=== PATIENT | male | born 1930 | race Caucasian/White ===

== ENCOUNTER 2017-12-13 15:16 | Inpatient (IN) | payer OTHER, MEDICAID ==
[~2017-12-13] VITALS: Ht 175.3 cm; Wt 45.8 kg
[2017-12-13 15:16] VITALS: BP_SYST 115
[~2017-12-13 15:16] MED LIST: CARV6.2554 PO; ERGO500043 PO; LEVE500T53 PO; SENN-153 PO; TAMS-11 PO
--- NOTE | 2017-12-13 15:16 | NUR ---
BROUGHT IN BY [facility], PLACED IN BED #4 AND TRIAGED. REPORT GIVEN TO SAMANTHA
--- NOTE | 2017-12-13 15:30 | NUR ---
Pt brought by ACLS, A&Ox2, pt presents to ER with generalized weakness and buttocks pain 8/10 , cap refill <3, skin dry, radial pulses equal and strong, pt looks malnourished.
--- NOTE | 2017-12-13 15:30 | NUR ---
Dr Andrew at bedside examining patient
[2017-12-13] MEDS ORDERED: NS 500 ML IV ONE ×2 (15:45→21:45)
--- NOTE | 2017-12-13 15:56 | NUR ---
Per pt at pt daughter, pt is FULL CODE. Status form signed by ER MD and 2 RN's placed in chart
[2017-12-13 16:29] LABS: HEMATOCRIT 34.7 % (36-54); HEMOGLOBIN 11.4 g/dL (14.0-18.0); MEAN CORPUSCULAR HEMOGLOBIN 30 pg (27-31); MEAN CORPUSCULAR HGB CONC 33 % (32-36); MEAN CORPUSCULAR VOLUME 91 fL (79.0-98.0); PLATELET COUNT (AUTO) 645 K/uL (130-430); RED BLOOD CELL COUNT(AUTO) 3.82 MIL/uL (4.2-6.2); RED CELL DISTRIBUTION WIDTH 14.2 % (9.0-15.0)
[2017-12-13 16:30] LABS: INR 1.1 (0.80-1.20)
[2017-12-13 16:31] LABS: WHITE BLOOD COUNT (AUTO) 32.9 K/uL (4.8-10.8)
--- NOTE | 2017-12-13 16:32 | NUR ---
patient moved to bed 2
[2017-12-13] MEDS ORDERED: MIRT15TA7 PO (16:40)
[2017-12-13] MEDS ORDERED: LEVO50TA77 PO (16:40)
[2017-12-13] MEDS ORDERED: ACET-1010 PO (16:40)
[2017-12-13 16:42] LABS: ANION GAP 8 (5-15); CALCIUM 10.6 mg/dL (8.4-11.0); CHLORIDE 98 mmol/L (98-107); CREATININE 1.61 mg/dL (0.55-1.30); GLUCOSE 248 mg/dL (70-99); POTASSIUM 5.4 mmol/L (3.5-5.1); SODIUM SERUM 132 mmol/L (136-145); UREA NITROGEN, BLOOD 48 mg/dL (8-21)
--- NOTE | 2017-12-13 16:42 | NUR ---
Medication reconciliation completed with information provided by RX bottles at bedside. Any prior medication reconciliation on file was reviewed and corrected.
[2017-12-13] MEDS ORDERED: LEVOFLOXACIN 500 MG/D5W 100 ML IV ONE (16:45)
[2017-12-13 16:47] LABS: BAND % (MANUAL) 34 % (0-6); BASOPHILS % (MANUAL) 0 % (0-2); EOSINOPHILS % (MANUAL) 0 % (0-7); LYMPHOCYTES % (MANUAL) 4 % (20-46); MONOCYTES % (MANUAL) 2 % (0-11)
[2017-12-13 16:53] LABS: ALANINE AMINOTRANSFERASE 14 U/L (12-78); ALBUMIN 2.1 g/dL (3.4-4.8); ASPARTATE AMINOTRANSFERASE 13 U/L (10-37); FREE T4 (FREE THYROXINE) 1.1 ng/dL (0.6-1.6); TOTAL BILIRUBIN 0.4 mg/dL (0.0-1.0)
--- NOTE | 2017-12-13 17:00 | NUR ---
Pt unable to urinate, pt refused urinary catheter, aware
[2017-12-13] MEDS ORDERED: SODIUM POLYSTYRENE SULFONATE 15 GM/60 ML UDBTL PO ONE (17:30)
[2017-12-13] MEDS ORDERED: SODIUM BICARBONATE 8.4% JECT 50 MEQ/50 ML SYRINGE IVP ONE (17:30)
[2017-12-13] MEDS ORDERED: CALCIUM CHLORIDE 1 GM/10ML VIAL (13.6 mEq Ca++/VIAL) IVP ONE (17:30)
[2017-12-13] MEDS ORDERED: DEXTROSE 50% JECT 50 ML DISP.SYRIN IVP ONE (17:30)
[2017-12-13] MEDS ORDERED: INSULIN REGULAR, HUMAN 10 UNITS/0.1 ML INJ IVP ONE (17:30)
--- NOTE | 2017-12-13 17:30 | NUR ---
Pt on stable condition, resting at this time, VSS,family at bedside
[2017-12-13] MEDS ORDERED: CALCIUM CHLORIDE 1 GM/10 ML DISP.SYRIN (14 mEq Ca++/SYR) ONE (18:38)
--- NOTE | 2017-12-13 18:45 | NUR ---
Pt medicated as ordered, well tolerated, family at bedside.
--- NOTE | 2017-12-13 19:15 | NUR ---
Pt alert and oriented. Family at bedside. No signs of SOB or acute distress noted. Will continue to monitor.
[2017-12-13] MEDS ORDERED: ALBUTEROL SULFATE 0.083% 2.5 MG/3 ML VIAL.NEB INH PRN (20:00)
[2017-12-13] MEDS ORDERED: NACL 0.9% 1,000 ML IV ONE (20:15)
[2017-12-13] MEDS ORDERED: PIPERACILLIN/TAZO 3.375 GM in NS 50 ML IV ONE (20:15)
--- NOTE | 2017-12-13 21:15 | NUR ---
Pt resting in bed, awake and alert. Family at bedside. Family and pt aware of transer to ICU. No signs of SOB or acute distress noted. Will continue to monitor.
[2017-12-13 23:00] VITALS: BP_SYST 89
--- NOTE | 2017-12-13 23:00 | NUR ---
[facility] report given by LEAD MEDICAL TECHNOLOGIST. Pt is filipino speaking with no uzbek. Family was able to translate for the Pt. AAOX3 with BP at 95/60. Pt was diagnosed with failure to thrive and sepsis. On regular diet. Lactic acid at 3.3 and WBC of 32.9. Pt on 2L nasal cannula saturating well with 100%. Pt is incontinent. Safety precaution identified, HOB elevated and side rails are up. Call light within reach. Will continue top monitor Pt.
--- NOTE | 2017-12-13 23:00 | NUR ---
Transfer to ICU 4 via ACLS protocol. Licensed nurse present. IV present no signs or symptoms of infiltration. Report given to PUPPET ENGINEER. Pt in stable condition. Belongings sent with patient.
[2017-12-13 23:25] VITALS: BP_SYST 93
[2017-12-13 23:40] VITALS: BP_SYST 93
[2017-12-14] VITALS (24 sets, daily range): BP systolic 85–132
[2017-12-14] MEDS ORDERED: PIPERACILLIN/TAZOBACTAM 3.375 GM/VIAL (ZOSYN) IV ONE ×2 (00:34→05:36)
--- NOTE | 2017-12-14 02:45 | NUR ---
MD Sheth is being hypotensive with BP systolic at 80, paged and spoke with MD Davila, orders received and will carry out orders.
[2017-12-14] MEDS ORDERED: NOREPINEPHRINE 4 MG/4 ML VIAL IV ONE (02:53)
[2017-12-14] MEDS ORDERED: NACL 0.9% 1,000 ML IV ONE (02:55)
[2017-12-14] MEDS ORDERED: VANCOMYCIN HCL 750 MG in NS 250 ML IV ONE (03:00)
[2017-12-14] MEDS: NOREPINEPHRINE BITARTRATE 4 MG in D5W 246 ML IV PRN ×3 (03:00→22:59)
--- NOTE | 2017-12-14 03:00 | NUR ---
RN NOTES Levophed started at 2mcg/min and will continue to monitor Pt.
--- NOTE | 2017-12-14 03:20 | NUR ---
RN NOTES BP systolic at 120's, levophed running at 6mcg/min. Will continue to monitor Pt.
[2017-12-14] MEDS ORDERED: VANCOMYCIN HCL 1000 MG/VIAL IV ONE (03:45)
[2017-12-14] MEDS: PIPERACILLIN/TAZO 3.375/DEX-IS 50 ML IV SCH ×3 (06:24→17:25)
--- NOTE | 2017-12-14 06:30 | NUR ---
BLOOD GLUCOSE Blood sugar 36 will follow hypoglycemia protocol. Addendum: 12/14/17 at 0729 by Jorge Boland RN BLOOD GLUCOSE Blood sugar 36 will follow hypoglycemia protocol and will recheck blood glucose after 15 min.
[2017-12-14] MEDS ORDERED: DEXTROSE 50% JECT 50 ML DISP.SYRIN ONE (06:35)
--- NOTE | 2017-12-14 06:45 | NUR ---
BLOOD GLUCOSE Blood glucose 163 after giving d50.
--- NOTE | 2017-12-14 06:58 | NUR ---
CLOSING NOTES Pt in bed VSS, No acute distress at this time. Will give report to oncoming RN.
[2017-12-14 07:05] LABS: HEMOGLOBIN 9.5 g/dL (14.0-18.0); MEAN CORPUSCULAR HEMOGLOBIN 30 pg (27-31); MEAN CORPUSCULAR HGB CONC 33 % (32-36); MEAN CORPUSCULAR VOLUME 92 fL (79.0-98.0); PLATELET COUNT (AUTO) 533 K/uL (130-430); RED BLOOD CELL COUNT(AUTO) 3.17 MIL/uL (4.2-6.2); RED CELL DISTRIBUTION WIDTH 14.1 % (9.0-15.0)
[2017-12-14] MEDS ORDERED: DEXTROSE 50%-WATER 50 ML DISP.SYRIN IVP PRN ×2 (07:30)
[2017-12-14] MEDS ORDERED: GLUCOSE 15 GM GEL (in 37.5 GM TUBE) PO PRN ×2 (07:30)
[2017-12-14 07:49] LABS: WHITE BLOOD COUNT (AUTO) 36.7 K/uL (4.8-10.8)
--- NOTE | 2017-12-14 08:00 | NUR ---
AM ASSESSMENT. PT AWAKE, REPOSITIONED IN BED, INCONTINENT OF BOWEL, LOOSE [id number] STOOL, HYGIENE PROVIDED WITH WET WIPES, BUTTOCKS BONY, SMALL SKIN TEAR, OPENED SORE BY RECTAL AREA, Z-GUARD LOTION APPLIED, LOOSE STOOL KEEP COMING OUT THOUGH EVEN AFTER BEING CLEANED, CONTINUE TO MONITOR.
[2017-12-14 08:07] LABS: ANION GAP 11 (5-15); CALCIUM 8.6 mg/dL (8.4-11.0); CHLORIDE 109 mmol/L (98-107); POTASSIUM 3.5 mmol/L (3.5-5.1); SODIUM SERUM 141 mmol/L (136-145); UREA NITROGEN, BLOOD 45 mg/dL (8-21)
--- NOTE | 2017-12-14 08:08 | NUR ---
Nutrition Update Lee Scale 13 noted. Pt admitted for failure to thrive Diet: regular diet BMI: 15.2 kg/m2 RD to follow per nutrition care standards.
[2017-12-14 08:16] LABS: ALANINE AMINOTRANSFERASE 12 U/L (12-78); ALBUMIN 1.5 g/dL (3.4-4.8); ASPARTATE AMINOTRANSFERASE 16 U/L (10-37); TOTAL BILIRUBIN 0.3 mg/dL (0.0-1.0)
[2017-12-14 08:22] LABS: GLUCOSE 46 mg/dL (70-99)
--- NOTE | 2017-12-14 09:10 | NUR ---
DR. MELÉNDEZ, DR. MELÉNDEZ NOTIFIED OF WBC 36.7, NEW ORDERS TO CONSULT DR. ABARMS, AND DR. LECHUGA.
[2017-12-14 09:12] LABS: BAND % (MANUAL) 39 % (0-6); LYMPHOCYTES % (MANUAL) 5 % (20-46)
[2017-12-14 09:13] LABS: BASOPHILS % (MANUAL) 0 % (0-2); EOSINOPHILS % (MANUAL) 0 % (0-7); MONOCYTES % (MANUAL) 5 % (0-11); MYELOCYTES % 2 % (0-0)
[2017-12-14] MEDS: levETIRAcetam 500 MG TABLET PO SCH ×2 (09:32→20:55)
[2017-12-14] MEDS ORDERED: NACL 0.9% 1,000 ML IV SCH (11:00)
--- NOTE | 2017-12-14 12:45 | NUR ---
PERSISTANT TACHYCARDIA DR. MELÉNDEZ WITH [facility] CONTACTED REGARDING ELEVATED HEART RATE IN THE 140'S. ORDER GIVEN FOR VASOPRESSIN DRIP. 1250 UNABLE TO ENTER ORDER FOR VASOPRESSIN DRIP, PHARMACY WAS CONTACTED AND THE MEDICATION IS NO LONGER IN THE HOSP. FORMULARY. 1255 DR. MELÉNDEZ WAS PAGED AGAIN. 1251 DR. MELÉNDEZ RETURNED CALL AND PLACED AN ORDER FOR NEOSYNEPHRINE DRIP.
[2017-12-14] MEDS ORDERED: VASOPRESSIN 200 UNITS in D5W 90 ML IV PRN (13:00)
[2017-12-14] MEDS: PHENYLEPHRINE HCL 30 MG in NS 247 ML IV PRN (13:36)
--- NOTE | 2017-12-14 13:36 | NUR ---
IV DRIPS. INITIATED NEOSYNEPHRINE DRIP AT 20 MCG/MIN, CONTINUE TO MONITOR PT.
--- NOTE | 2017-12-14 14:55 | NUR ---
. DR MELÉNDEZ HERE, EXAMINED AND SPOKE TO PT WHILE HIS SON AGUSTÍN, AND DAUGHTER SHARAN INSIDE ROOM. INFORMED MD REGARDING OPENED SORE TO BUTTOCKS. ACCORDING TO HIS FAMILY HE MAY HAVE HAD SOME KIND OF RECTAL PROTRUSION. HE STATED HE WILL HAVE A HOSPICE VOLUNTEER TO LOOK INTO THIS.
--- NOTE | 2017-12-14 15:00 | NUR ---
CARDIAC. HEART MONITOR ON NSR, PT ALERT, COMFORTABLE, HAVING CONVERSATION WITH FAMILY AT BEDSIDE.
[2017-12-14] MEDS: INSULIN REGULAR, HUMAN 100 UNITS/ML, 10 ML VIAL (novoLIN R) SUBCUT PRN ×2 (17:52→21:02)
--- NOTE | 2017-12-14 18:45 | NUR ---
PICC. PICC NURSE HERE, TIME OUT DONE AT BEDSIDE.
--- NOTE | 2017-12-14 19:30 | NUR ---
ASSUMPTION OF CARE REPORT RECEIVED FROM IVORY CASAS. PT IN BED WITH EYES OPEN, PICC LINE NURSE AT BEDSIDE FOR INSERTION. AAO, MOHAWK SPEAKING. PT ON 2L NC, SAT HIGH 90s. SR ON MONITOR. RFA 20G INFUSING LEVOPHED @ 8 MCGS/MIN AND NEOSYNEPHRINE @ 20 MCGS/MIN. L HAND 24G INFUSING NS @ 80 CC/HR. SCDs IN PLACE. PICC LINE NURSE TO CONTINUE PROCEDURE. VSS, NO SIGNS OF DISTRESS NOTED. WILL CONTINUE TO MONITOR.
--- NOTE | 2017-12-14 20:30 | NUR ---
PICC LINE PICC LINE NURSE COMPLETED PICC LINE INSERTION IN L UPPER ARM. STAT XRAY OBTAINED. PICC LINE OK TO USE. LEVOPHED, NEOSYNEPHRINE, AND NS TRANSFERRED AND INFUSING THROUGH PICC LINE.
[2017-12-14] MEDS ORDERED: LEVOFLOXACIN 250 MG/D5W 50 ML IV ONE (20:55)
[2017-12-14] MEDS: LEVOFLOXACIN 250 MG/D5W 50 ML IV SCH (21:44)
[2017-12-15] VITALS (24 sets, daily range): BP systolic 88–115
[2017-12-15] MEDS: PIPERACILLIN/TAZO 3.375/DEX-IS 50 ML IV SCH ×5 (00:10→23:52)
--- NOTE | 2017-12-15 01:30 | NUR ---
HYGIENE PT HAD 2ND LOOSE WATERY STOOL. ANEL CARE DONE AND LINENS CHANGED. PT TOLERATED WELL AND MADE COMFORTABLE. VSS, NO SIGNS OF DISTRESS NOTED. WILL CONTINUE TO MONITOR.
--- NOTE | 2017-12-15 03:02 | NUR ---
LEVOPHED PT BP STABLE IN THE 120s, LEVOPHED TURNED OFF. WILL CONTINUE TO MONITOR.
[2017-12-15] MEDS: ACETAMINOPHEN 325 MG TABLET PO PRN (05:28)
--- NOTE | 2017-12-15 05:30 | NUR ---
REFUSED CHG PT REFUSED CHG STATING HE WOULD RATHER HAVE IT DONE DURING THE DAY BECAUSE IT IS COLD, AND HE HAD A PRIOR BATH THAT "GAVE HIM LEG PAINS".
[2017-12-15] MEDS ORDERED: VANCOMYCIN HCL 750 MG in NS 250 ML IV SCH (06:00)
--- NOTE | 2017-12-15 06:00 | NUR ---
HYPOGLYCEMIA PT BLOOD SUGAR 64. APPLE JUICE AND DEXTROSE GIVEN. BS RECHECKED IN 15 MINS, 189. VSS, NO SIGNS OF DISTRESS NOTED. PT MADE COMFORTABLE. WILL CONTINUE TO MONITOR.
[2017-12-15 06:57] LABS: HEMOGLOBIN 9.1 g/dL (14.0-18.0); MEAN CORPUSCULAR HEMOGLOBIN 29 pg (27-31); MEAN CORPUSCULAR HGB CONC 32 % (32-36); MEAN CORPUSCULAR VOLUME 91 fL (79.0-98.0); PLATELET COUNT (AUTO) 347 K/uL (130-430); RED BLOOD CELL COUNT(AUTO) 3.08 MIL/uL (4.2-6.2); RED CELL DISTRIBUTION WIDTH 14.6 % (9.0-15.0)
[2017-12-15 07:27] LABS: ALANINE AMINOTRANSFERASE 21 U/L (12-78); ALBUMIN 1.2 g/dL (3.4-4.8); ASPARTATE AMINOTRANSFERASE 35 U/L (10-37); CALCIUM 8.1 mg/dL (8.4-11.0); CREATININE 0.87 mg/dL (0.55-1.30); GLUCOSE 60 mg/dL (70-99); SODIUM SERUM 139 mmol/L (136-145); TOTAL BILIRUBIN 0.3 mg/dL (0.0-1.0); UREA NITROGEN, BLOOD 32 mg/dL (8-21)
[2017-12-15 07:41] LABS: WHITE BLOOD COUNT (AUTO) 41.1 K/uL (4.8-10.8)
--- NOTE | 2017-12-15 07:41 | NUR ---
ENDORSEMENT BEDSIDE REPORT GIVEN TO AL CASAS USING SBAR APPROACH.
[2017-12-15] MEDS ORDERED: traMADol HCL HCL 50 MG TABLET (ULTRAM) PO PRN (08:00)
--- NOTE | 2017-12-15 08:00 | NUR ---
ASSUMPTION OF CARE: RECEIVED PT A/A/OX3, DX:RISK FOR INJURY, R/T SEPSIS, BREATH SOUNDS ARE CLEAR, DIMINISHED, ON O2 2L VIA NC, AFEBRILE, BOWEL SOUNDS PRESENT, IV SITE INTACT, PATENT, NO REDNESS OR SWELLING, C/O PAIN TO BILATERAL FEET, 87/10 VIA NUMERIC SCALE, KEPT ELEVATED ON PILLOWS, MEDICATED WITH TYLENOL, ORIENTED TO UNIT, CALLLIGHT PLACED WITHIN REACH, WILL CONT' TO MONITOR AND ASSESS.
[2017-12-15 08:06] LABS: ANION GAP 10 (5-15); CHLORIDE 107 mmol/L (98-107)
[2017-12-15 08:13] LABS: POTASSIUM 2.7 mmol/L (3.5-5.1)
[2017-12-15 08:27] LABS: BILIRUBIN,URINE 1+ (NEGATIVE); BLOOD, URINE NEGATIVE (NEGATIVE); CLARITY/URINE SL HAZY (CLEAR); COLOR,URINE YELLOW (YELLOW); GLUCOSE,URINE NEGATIVE (NEGATIVE); KETONES,URINE TRACE (NEGATIVE); LEUKOCYTE ESTERASE ,URINE NEGATIVE (NEGATIVE); NITRITE, URINE NEGATIVE (NEGATIVE); PROTEIN URINE TRACE (NEGATIVE); UROBILINOGEN,URINE 0.2 (0.2-1.0)
--- NOTE | 2017-12-15 08:28 | NUR ---
ABNORMAL LAB DR. MELÉNDEZ NOTIFIED OF POTASSIUM 2.7 - NEW ORDERS RECEIVED.
[2017-12-15] MEDS ORDERED: POTASSIUM CHLORIDE 40 MEQ in D5W 250 ML IV ONE (09:00)
--- NOTE | 2017-12-15 09:00 | NUR ---
RADIOLOGY: PT OFF UNIT FOR CT SCAN OF ABD AND CHEST, TRANSPORTED VIA BED, ACCOMPANIED BY NURSE DAVID CASAS.
[2017-12-15] MEDS: levETIRAcetam 500 MG TABLET PO SCH ×2 (09:45→21:09)
[2017-12-15 09:49] LABS: BAND % (MANUAL) 22 % (0-6); BASOPHILS % (MANUAL) 0 % (0-2); EOSINOPHILS % (MANUAL) 0 % (0-7); LYMPHOCYTES % (MANUAL) 3 % (20-46); MONOCYTES % (MANUAL) 4 % (0-11)
--- NOTE | 2017-12-15 11:07 | NUR ---
LAB RESULTS: CALL PLACED TO FOR WBC RESULTS=41.1 AND POSITIVE MRSA OF THE NARES, MESSAGE LEFT WITH JAGRUTI IMAGE PROCESSING ENGINEER.
--- NOTE | 2017-12-15 11:30 | NUR ---
GLUCOSE MONITORING: BLOOD SUGAR OXCAG=379, 4 UNITS REGULAR INSULIN COVERAGE GIVEN, WILL CONT' WITH PLAN OF CARE.
[2017-12-15] MEDS: INSULIN REGULAR, HUMAN 100 UNITS/ML, 10 ML VIAL (novoLIN R) SUBCUT PRN ×3 (12:09→21:14)
--- NOTE | 2017-12-15 12:30 | NUR ---
VISIT: AT BEDSIDE FOR ASSESSMENT OF PT, SPOKE WITH FAMILY MEMBERS REGARDING PLAN OF CARE, VERBALIZED UNDERSTANDING, WILL CONT' WITH PLAN OF CARE.
[2017-12-15] MEDS: PHENYLEPHRINE HCL 30 MG in NS 247 ML IV PRN (13:42)
[2017-12-15] MEDS: HYDROCORTISONE SOD SUCC 100 MG/2 ML VIAL IVP SCH ×2 (13:45→21:10)
[2017-12-15] MEDS: metroNIDAZOLE 500 MG TABLET PO SCH ×2 (13:46→21:09)
--- NOTE | 2017-12-15 14:00 | NUR ---
NURSES NOTES: PT ASLEEP WITH FAMILY MEMBERS AT BEDSIDE, AROUSABLE VIA VERBAL STIMULI, NO C/O PAIN, NO S/S OF DISTRESS, NEEDS MET, CALL LIGHT PLACED WITHIN REACH, POSITIONED FOR COMFORT, WILL CONT' TO MONITOR AND ASSESS.
--- NOTE | 2017-12-15 17:00 | NUR ---
GLUCOSE MONITORING: BLOOD SUGAR DBYDU=406, 4 UNITS REGULAR INSULIN COVERAGE GIVEN, WILL CONT' WITH PLAN OF CARE.
[2017-12-15] MEDS: LEVOFLOXACIN 250 MG/D5W 50 ML IV SCH (17:40)
--- NOTE | 2017-12-15 19:10 | NUR ---
Beginning of shift assessment: Received patient asleep, rise and fall of chest noted. SR on solar energy installation manager. Patient on 2L NC, saturating at 99%. Clear lung sounds heard throughout upon auscultation. MARYAM Picc line infusing D5 1/2 NS@ 80cc/hr, Neosynephrine @ 20 mcgs/min. SCDs in place. HOB elevated. Call light within reach. Bed locked, in lowest position. Will continue to monitor.
[2017-12-15] MEDS: D5/0.45 NS 1,000 ML IV SCH ×2 (20:30→22:58)
--- NOTE | 2017-12-15 21:13 | NUR ---
Glucose Monitoring: Blood Sugar Level = 208, 4 units Regular insulin coverage given. Will continue to monitor.
--- NOTE | 2017-12-15 22:20 | NUR ---
Patient update: Charge nurse spoke to patient in Nauruan regarding CHG bath, patient refused CHG bath and said he would like the care done during the day.
[2017-12-16] VITALS (24 sets, daily range): BP systolic 100–155
--- NOTE | 2017-12-16 00:20 | NUR ---
Patient Update: Patient resting quietly, rise and fall of chest noted. Patient saturating at 100%. No acute distress noted.
[2017-12-16] MEDS ORDERED: PHENYLEPHRINE HCL 10 MG/ML VIAL (NEOSYNEPHRINE) ONE (02:59)
[2017-12-16] MEDS: PHENYLEPHRINE HCL 30 MG in NS 247 ML IV PRN ×3 (04:34→20:29)
[2017-12-16] MEDS: HYDROCORTISONE SOD SUCC 100 MG/2 ML VIAL IVP SCH ×3 (06:22→21:05)
[2017-12-16] MEDS: metroNIDAZOLE 500 MG TABLET PO SCH (06:22)
[2017-12-16] MEDS: PIPERACILLIN/TAZO 3.375/DEX-IS 50 ML IV SCH ×4 (06:23→23:57)
--- NOTE | 2017-12-16 06:28 | NUR ---
Glucose Monitoring: Blood Sugar Level = 136, no coverage given as per sliding scale protocol. Will continue to monitor.
[2017-12-16 06:44] LABS: HEMATOCRIT 28.4 % (36-54); HEMOGLOBIN 9.3 g/dL (14.0-18.0); MEAN CORPUSCULAR HEMOGLOBIN 30 pg (27-31); MEAN CORPUSCULAR HGB CONC 33 % (32-36); MEAN CORPUSCULAR VOLUME 91 fL (79.0-98.0); PLATELET COUNT (AUTO) 287 K/uL (130-430); RED BLOOD CELL COUNT(AUTO) 3.12 MIL/uL (4.2-6.2); RED CELL DISTRIBUTION WIDTH 14.8 % (9.0-15.0)
[2017-12-16 07:20] LABS: ALANINE AMINOTRANSFERASE 23 U/L (12-78); ALBUMIN 1.1 g/dL (3.4-4.8); ANION GAP 6 (5-15); ASPARTATE AMINOTRANSFERASE 26 U/L (10-37); CALCIUM 8.1 mg/dL (8.4-11.0); CHLORIDE 107 mmol/L (98-107); CREATININE 0.92 mg/dL (0.55-1.30); GLUCOSE 161 mg/dL (70-99); POTASSIUM 3.3 mmol/L (3.5-5.1); SODIUM SERUM 135 mmol/L (136-145); TOTAL BILIRUBIN 0.2 mg/dL (0.0-1.0); UREA NITROGEN, BLOOD 23 mg/dL (8-21)
--- NOTE | 2017-12-16 07:20 | NUR ---
Endorsement: Patient VSS. No sign of acute distress or discomfort noted. Report given to oncoming nurse.
--- NOTE | 2017-12-16 07:20 | NUR ---
Dr. Holman at bedside examining pt. Dr. Holman also spoke to family on phone regarding code status and updates on pt.
--- NOTE | 2017-12-16 07:30 | NUR ---
AM Assessment Pt AAOx2, confused, French speaking only. Respirations even and unlabored on 2L O2 via NC. Pt states no discomfort at this time. Skin warm and dry, noted skin multiple skin issues. BUE with non-pitting edema. PICC in MARYAM intact, patent, IVF infusing. Pt is on neosynephrine drip 60 mcg/min. SR on monitor, HR 70s. Bowel sounds present. Pulses present all extremities. SCDs in place. Bed locked in lowest position. Call light in reach. Will continue to monitor.
[2017-12-16] MEDS: levETIRAcetam 500 MG TABLET PO SCH ×2 (08:21→21:05)
[2017-12-16] MEDS ORDERED: POTASSIUM CHLORIDE 20 MEQ TAB.PRT.SR PO ONE (09:00)
[2017-12-16 09:01] LABS: BAND % (MANUAL) 21 % (0-6); BASOPHILS % (MANUAL) 0 % (0-2); EOSINOPHILS % (MANUAL) 0 % (0-7); LYMPHOCYTES % (MANUAL) 4 % (20-46); MONOCYTES % (MANUAL) 1 % (0-11)
[2017-12-16] MEDS: D5/0.45 NS 1,000 ML IV SCH (11:31)
[2017-12-16] MEDS: INSULIN REGULAR, HUMAN 100 UNITS/ML, 10 ML VIAL (novoLIN R) SUBCUT PRN ×3 (11:37→21:27)
--- NOTE | 2017-12-16 13:00 | NUR ---
CODE STATUS. PT'S DAUGHTERS SHARAN AND EMMA HERE. SHARAN STATED THAT SHE WAS CALLED BY DR DOLAN THIS AM AND HAD MENTIONED ABOUT DNR. DISCUSSED WITH FAMILY ABOUT IV MEDS, USE OF CONTINUOUS O2, VENTILATOR, CPR, TRACHEOSTOMY. MEDICATION, O2 , FEEDING ARE ACCEPTABLE TO THEM. DOING CHEST COMPRESSION AND INTUBATION ARE NOT, BUT SHE WOULD LIKE TO INVOLVE THE OTHER SIBLINGS FOR THE FINAL DECISION.
--- NOTE | 2017-12-16 13:39 | NUR ---
Dietitian Recommendations * Recommend continuing pureed diet per MD (oral supplement provides an additional 1080 kcal/day and 42 gm protein/day) LP, RD Please refer to Nutrition Assessment for details.
[2017-12-16] MEDS: metroNIDAZOLE 500 mg/NS 100 ML IV SCH ×2 (14:04→21:06)
--- NOTE | 2017-12-16 17:30 | NUR ---
Patient Round Offered pt CHG bath and linen change, pt refused CHG bath but allowed for linen change. Collected stool sample for MD's orders.
[2017-12-16] MEDS: ACETAMINOPHEN 325 MG TABLET PO PRN (19:14)
--- NOTE | 2017-12-16 19:25 | NUR ---
Endorsement Endorsed plan of care to oncoming painter interior finish RN. Pt in no acute distress and states no pain. IVF fluid infusing, neosynephrine drip at 60 mcg/min.
--- NOTE | 2017-12-16 19:30 | NUR ---
RECEIVED REPORT FROM AUGUSTO RANDALL. PATIENT AWAKE. COMMUNICATE IN KOREAN. V/S STABLE WITH NEOSYNEPHRINE DRIVE AT 60 MCG/KG/MIN TO LEFT UPPER ARM PICC. LARGE STOOL AND INCONTINENCE NOTED. CHG BATH GIVEN AND PARTIAL LINEN CHANGE DONE. REPOSITIONED FOR COMFORT.
[2017-12-16] MEDS: MUPIROCIN NASAL 2% OINT. 1 GM NS SCH (21:07)
[2017-12-17] VITALS (22 sets, daily range): BP systolic 98–126
--- NOTE | 2017-12-17 | NUR ---
EASILY AWAKE. NOTED WITH MODERATE LOOSE STOOL AND URINE INCONTINENCE. PERIANAL CARE GIVEN. SACRAL DENUDED. ZGUARD APPLIED. NEOSYNEPHRINE DRIP TITRATED.
--- NOTE | 2017-12-17 04:00 | NUR ---
AWAKE. INCONTINENT OF URINE. PERIANAL CARE GIVEN. REPOSITIONED FOR COMFORT. NEOSYNEPHRINE DRIP NOW AT 20 MCG/KG/MIN.
[2017-12-17] MEDS: metroNIDAZOLE 500 mg/NS 100 ML IV SCH ×3 (05:28→21:18)
[2017-12-17] MEDS: PIPERACILLIN/TAZO 3.375/DEX-IS 50 ML IV SCH ×4 (05:29→23:02)
[2017-12-17] MEDS: HYDROCORTISONE SOD SUCC 100 MG/2 ML VIAL IVP SCH ×3 (05:29→21:17)
[2017-12-17 06:59] LABS: ALANINE AMINOTRANSFERASE 26 U/L (12-78); ALBUMIN 1.1 g/dL (3.4-4.8); ANION GAP 6 (5-15); ASPARTATE AMINOTRANSFERASE 19 U/L (10-37); CALCIUM 7.3 mg/dL (8.4-11.0); CHLORIDE 108 mmol/L (98-107); CREATININE 0.73 mg/dL (0.55-1.30); GLUCOSE 123 mg/dL (70-99); SODIUM SERUM 137 mmol/L (136-145); TOTAL BILIRUBIN 0.5 mg/dL (0.0-1.0); UREA NITROGEN, BLOOD 20 mg/dL (8-21)
[2017-12-17 07:23] LABS: POTASSIUM 2.6 mmol/L (3.5-5.1)
--- NOTE | 2017-12-17 07:40 | NUR ---
REPORT GIVEN TO AUGUSTO BIRCHASSOCIATE FIELD SERVICE ENGINEER.
[2017-12-17] MEDS ORDERED: POTASSIUM CHLORIDE 60 MEQ in NS 500 ML IV SCH (07:48)
--- NOTE | 2017-12-17 08:00 | NUR ---
INITIAL SHIFT ASSESSMENT DONE. AWAKE, PLEASANTLY CONFUSED, FOLLOWS SIMPLE COMMAND. NO C/O PAIN OR DYSPNEA. O2 SAT 100%. SR ON MONITOR. SBP IN 100'S-110'S. NO ECTOPY NOTED. HOB ELEVATED. UPDATED OF PLAN OF CARE. DR DOLAN WAS HERE A FEW MINUTES AGO. UPDATED OF STATUS. NEW ORDERS RECEIVE. WILL CONTINUE TO MONITOR.
--- NOTE | 2017-12-17 08:00 | NUR ---
MD ROUNDS: MD DOLAN IS HERE, NEW NEW ORDER RECEIVED, CANCEL HIDA SCAN. NOTED.
[2017-12-17 08:11] LABS: HEMATOCRIT 27.9 % (36-54); MEAN CORPUSCULAR HEMOGLOBIN 30 pg (27-31); MEAN CORPUSCULAR HGB CONC 32 % (32-36); MEAN CORPUSCULAR VOLUME 92 fL (79.0-98.0); PLATELET COUNT (AUTO) 273 K/uL (130-430); RED BLOOD CELL COUNT(AUTO) 3.05 MIL/uL (4.2-6.2); RED CELL DISTRIBUTION WIDTH 14.7 % (9.0-15.0)
[2017-12-17] MEDS: traMADol HCL HCL 50 MG TABLET (ULTRAM) PO PRN ×2 (08:30→20:53)
--- NOTE | 2017-12-17 08:30 | NUR ---
C/O MODERATE PAIN ON BOTH LEGS AND COCCYX AREA. GIVEN ULTRAM PO BY CURRICULUM SPECIALIST MIA. WILL CONTINUE TO MONITOR.
--- NOTE | 2017-12-17 08:45 | NUR ---
GIVEN LATE BREAKFAST TRAY PER DR DOLAN'S ORDER.
[2017-12-17] MEDS: MUPIROCIN NASAL 2% OINT. 1 GM NS SCH ×2 (08:59→20:10)
[2017-12-17] MEDS: levETIRAcetam 500 MG TABLET PO SCH ×2 (08:59→20:10)
[2017-12-17] MEDS: D5/0.45 NS 1,000 ML IV SCH ×2 (09:01→18:23)
--- NOTE | 2017-12-17 09:30 | NUR ---
TWO DAUGHTERS ARE IN THE ROOM. UPDATED OF STATUS AND PLAN OF CARE.
[2017-12-17] MEDS: VANCOMYCIN HCL 125 MG CAPSULE PO SCH ×4 (09:39→20:10)
--- NOTE | 2017-12-17 09:45 | NUR ---
HAS BM AT THIS TIME, MODERATE AMOUNT, PASTY, AND DARK GREENISH BROWN COLOR. GIVEN PARTIAL BATH AND LINENS ARE CHANGE. TOLERATED THE PROCEDURE WELL.
--- NOTE | 2017-12-17 10:00 | NUR ---
RESTING IN BED. NO C/O PAIN OR DYSPNEA. O2 SAT 99-100%. SR ON MONITOR. SBP IN 100'S-121. NO ECTOPY NOTED. HOB ELEVATED. WILL CONTINUE TO MONITOR.
[2017-12-17 10:48] LABS: BASOPHILS % (MANUAL) 0 % (0-2); EOSINOPHILS % (MANUAL) 0 % (0-7); LYMPHOCYTES % (MANUAL) 4 % (20-46); MONOCYTES % (MANUAL) 1 % (0-11)
--- NOTE | 2017-12-17 11:00 | NUR ---
MORE FAMILY MEMBERS ARE IN THE ROOM. UPDATED OF STATUS AND PLAN OF CARE. WILL CONTINUE TO MONITOR.
[2017-12-17] MEDS: INSULIN REGULAR, HUMAN 100 UNITS/ML, 10 ML VIAL (novoLIN R) SUBCUT PRN ×3 (11:49→20:12)
--- NOTE | 2017-12-17 12:00 | NUR ---
REASSESSMENT DONE. NEURO STATUS UNCHANGED. NO C/O PAIN OR DYSPNEA. O2 SAT 99-100%. SR ON MONITOR. SBP IN 100'S-110'S. NO ECTOPY NOTED. HOB ELEVATED. UPDATED OF PLAN OF CARE. WILL CONTINUE TO MONITOR.
--- NOTE | 2017-12-17 13:00 | NUR ---
GIVEN LUNCH TRAY. FEED BY .
--- NOTE | 2017-12-17 14:00 | NUR ---
wrong pt Addendum: 12/17/17 at 1421 by Laxmi Fonseca RN Amended: Links added.
--- NOTE | 2017-12-17 14:00 | NUR ---
RESTING IN BED WITH FAMILY MEMBERS AT BEDSIDE. NO C/O PAIN OR DYSPNEA. O2 SAT 100%. SR ON MONITOR. SBP IN 90'S-120'S. NO ECTOPY NOTED. HOB ELEVATED. WILL CONTINUE TO MONITOR.
--- NOTE | 2017-12-17 16:00 | NUR ---
REASSESSMENT DONE. NEURO STATUS STILL THE SAME. NO C/O PAIN OR DYSPNEA. O2 SAT 100%. SR ON MONITOR. SBP IN 100'S-110'S. NEOSYNEPHRINE DRIP DECREASE TO 18 MCG/MIN. NO ECTOPY NOTED. HOB ELEVATED. FAMILY MEMBERS AT BEDSIDE. UPDATED OF PLAN OF CARE. WILL CONTINUE TO MONITOR.
--- NOTE | 2017-12-17 17:10 | NUR ---
WOUND EVALUATION: Wound Consult received from Dr. Cross. Thank you, Dr. Cross, for the consult. Patient received in a [place] Bed with an IsoFlex MARIBEL mattress, awake, slow to respond, confused. Patient is unable to turn in bed independently. Lee Score is a 13. Past Medical History: Diabetes Mellitus, CAD. Recent Labs: WBC 32.0, RBC 3.05, hemoglobin 9.0, hematocrit 27.9, potassium 2.6, chloride 108, glucose 123, calcium 7.3, albumin 1.1. Intrinsic factors that delay wound healing: Diabetes mellitus, coronary artery disease, severe hypoalbuminemia, hyperglycemia. Extrinsic factors that delay wound healing: Immobility. Microbiology: Blood culture results 2 in progress. MRSA screen results positive. Stool C. difficile in progress. Stool WBC smear negative. Stool Shiga toxin culture negative. Stool ova and parasites in progress. Wound Assessment: 1. Left buttock near issue tuberosity: Pressure ulcer, present on admission. Wound bed is 95% yellow tissue, 5% red tissue. Periwound intact. No odor, no drainage. Measures 1.0 cm x 0.5 cm. 2. Right buttock near issue tuberosity: Pressure ulcer, present on admission. Wound bed is 95% yellow tissue, 5% red tissue. Periwound intact. No odor, no drainage. Measures 1.1 cm x 0.9 cm. Recommend: Cleanse wounds with normal saline. Place moisture barrier cream onto franci-wounds. Apply Venelex ointment onto wound beds. Cover with foam dressings. Perform wound care daily, and as needed for dressing soiling or dislodgement. 3. Anal area: Scar tissue with overgrowth, area is eroding. Recommend: Cleanse site with mild soap and water. Pat dry. Place moisture barrier cream onto site. Perform site care every shift, and as needed for soiling. Reposition patient [id number] only every 2 hours. Do not allow patient to lie supine. 4. Right buttock: a. Wound, present on admission. Wound bed is 100% yellow tissue. No odor, no drainage. Measures 0.4 cm x 0.2 cm. b. Wound, present on admission. Wound bed is 100% yellow tissue. No odor, no drainage. Measures 0.6 cm x 0.4 cm. Recommend: Cleanse wounds with normal saline. Place moisture barrier cream onto franci-wounds. Apply Venelex ointment onto wound beds. Cover with foam dressings. Perform wound care daily, and as needed for dressing soiling or dislodgement. 5. Left foot, great toe, distal aspect: Chronic wound, present on admission. Wound bed has 100% black eschar. No odor, no drainage. Wound measures 0.6 cm x 1.1 cm. 6. Right foot, great toe, distal aspect: a. Lateral wound: Chronic wound, present on admission. Wound bed has 100% black eschar. No odor, no drainage. Measures 0.8 cm x 1.0 cm. b. Medial wound: Chronic wound, present on admission. Wound bed has 100% black eschar. No odor, no drainage. Measures 1.2 cm x 1.3 cm. Recommend: No dressings needed. Continue to monitor sites for worsening condition, opening, or drainage. Contact wound care nurse if sites open or drain. 7. Anterior nose: Chronic wound, present on admission. Wound bed has 100% dark brown eschar. No odor, no drainage. Measures 1.0 cm x 1.2 cm. 8. Right lateral nose: Chronic wound, present on admission. Wound bed has 100% dark brown eschar. No odor, no drainage. Recommend: No dressings needed. Continue to monitor sites for worsening condition, opening, or drainage. Contact wound care nurse if sites open or drain. If nasal cannula or other respiratory support equipment is use, may cover areas with optifoam gentle dressings. Also recommend: Reposition patient side to side only every 2 hours with pillow support, and off-load pressure areas with pillows for pressure re-distribution. Offload, elevate and float bilateral heels with one pillow lengthwise under each extremity at all times. Perform skin care and monitor skin integrity Q shift. Use moisture barrier cream on buttocks and other moisture susceptible areas QID and as needed for soiling. Place patient on a low air-loss mattress.
--- NOTE | 2017-12-17 17:10 | NUR ---
COMMERCIAL GREEN RETROFIT ARCHITECT RANDALL IS IN THE ROOM CHECKING THE SKIN OF THE PATIENT. HAS INCONTINENT OF URINE AND STOOL AT THIS TIME. GIVEN PARTIAL BATH AND LINES ARE CHANGE. TOLERATED THE PROCEDURE WELL.
--- NOTE | 2017-12-17 17:45 | NUR ---
GIVEN DINNER TRAY. FEED BY THE .
--- NOTE | 2017-12-17 18:00 | NUR ---
RESTING IN BED WITH FAMILY MEMBERS IN THE ROOM. NO C/O PAIN OR DYSPNEA. O2 SAT 99-100%. SR ON MONITOR. SBP IN 90'S-110'S. NO ECTOPY NOTED. HOB ELEVATED. WILL CONTINUE TO MONITOR.
--- NOTE | 2017-12-17 19:10 | NUR ---
REPORT GIVEN TO INCOMING MILL FEEDER RN, AUGUSTO CHOWDARY.
--- NOTE | 2017-12-17 19:50 | NUR ---
TRANSFER OF CARE Received report from AM shift RN, Pt AAOX3 indonesian speaking with family at bedside to help translate in estonian. Had 75% of his pureed dinner, PICC line present on the MARYAM patent and secured with good blood flow. Neosinephrine drip at 18mcg/min. Nasal cannula at 2l with O2 saturation at 99%. SCD at bedside but Pt doesnt feel comfortable with it, will attempt to put it back after 30min. Safety precaution identified, HOB elevated in lowest position. Call ilght within reach. Will continue to monitor Pt. No acute distress at this time.
--- NOTE | 2017-12-17 22:00 | NUR ---
RN NOTES Pt in bed, no acute distress at this time. Turned and repositioned in off loading surface. Will continue to monitor Pt.
--- NOTE | 2017-12-17 22:00 | NUR ---
PRN PAIN MEDS Pt complains of leg pain, gave toradol prn as per md protocol. Will continue to monitor.
[2017-12-18] VITALS (23 sets, daily range): BP systolic 90–124
--- NOTE | 2017-12-18 | NUR ---
RN NOTES Pt in bed, no acute distress at this time. Turned and repositioned in offloading surface. Will continue to monitor Pt.
--- NOTE | 2017-12-18 02:00 | NUR ---
RN NOTES Pt in bed, no acute distress at this time. Turned and repositioned in off loading surface. Will continue to monitor Pt.
[2017-12-18] MEDS: D5/0.45 NS 1,000 ML IV SCH (02:17)
[2017-12-18] MEDS: PHENYLEPHRINE HCL 30 MG in NS 247 ML IV PRN ×2 (02:19→17:19)
--- NOTE | 2017-12-18 04:00 | NUR ---
RN NOTES Pt in bed, no acute distress at this time. Turned and repositioned in offloading surface. Will continue to monitor Pt.
[2017-12-18] MEDS: PIPERACILLIN/TAZO 3.375/DEX-IS 50 ML IV SCH ×3 (05:19→17:16)
--- NOTE | 2017-12-18 06:42 | NUR ---
CLOSING NOTES Pt in bed, no acute distress at this time. VSS, will give report to oncoming RN.
[2017-12-18 07:13] LABS: ALANINE AMINOTRANSFERASE 27 U/L (12-78); ALBUMIN 1.1 g/dL (3.4-4.8); ANION GAP 7 (5-15); ASPARTATE AMINOTRANSFERASE 20 U/L (10-37); CALCIUM 7.7 mg/dL (8.4-11.0); CHLORIDE 107 mmol/L (98-107); CREATININE 0.84 mg/dL (0.55-1.30); GLUCOSE 180 mg/dL (70-99); POTASSIUM 3.5 mmol/L (3.5-5.1); SODIUM SERUM 133 mmol/L (136-145); TOTAL BILIRUBIN 0.3 mg/dL (0.0-1.0); UREA NITROGEN, BLOOD 18 mg/dL (8-21)
--- NOTE | 2017-12-18 08:00 | NUR ---
EMIRATI SPEAKING, ABLE TO ADDRESS HIS NEEDS. PICC ON LEFT ARM, RUNNING ON NEOSYNEPHRINE AT 18MCG/MIN, AND D5 1/2 NS AT 60ML. LUNG SOUNDS DIMINISHED, BOWEL SOUNDS PRESENT. SR ON MONITOR. CALL LIGHT IN PLACE, BED LOCKED AT THE LOWEST POSITION, CALL LIGHT IN PLACE, WILL CONTINUE TO MONITOR.
[2017-12-18] MEDS: levETIRAcetam 500 MG TABLET PO SCH ×2 (08:47→21:11)
[2017-12-18] MEDS: VANCOMYCIN HCL 125 MG CAPSULE PO SCH ×4 (08:47→21:11)
[2017-12-18] MEDS: BALSAM PERU/CASTOR OIL 60 GM OINT...G. TP SCH (08:47)
[2017-12-18] MEDS: MUPIROCIN NASAL 2% OINT. 1 GM NS SCH ×2 (08:47→21:12)
--- NOTE | 2017-12-18 09:00 | NUR ---
patient is fed by RN. completed 80% of the meal.
[2017-12-18] MEDS: traMADol HCL HCL 50 MG TABLET (ULTRAM) PO PRN ×2 (09:25→21:11)
--- NOTE | 2017-12-18 09:50 | NUR ---
Dr Vasquez in to see pt . Questioned C-Diff diagnosis because it is pending in computer. I called lab and spoke with Ashley. Ashley confirmed C-Diff positive. Dr. Vasquez aware.
--- NOTE | 2017-12-18 10:30 | NUR ---
Nutrition F/U Admitting Diagnosis FTT Reviewed Pertinent Medical/Surgical Hx Medical Record Primary RN Medical History Comment: PMH: DM, CAD, dementia, HTN, recurrent UTI per MD notes Pt also found w/ sepsis, cachexia, anemia per MD notes 12/17/17 MD progress notes: S/P renal failure, hypothyroid, COPD, liver massess, C diff colitis complicated UTI. Subjective Information Pt seen resting in bed w/ RN at bedside providing care at time of RD visit. +IV infusing, +nasal cannula. Per RN, pt ate 80% of breakfast, pt did not drink the Boost but ate everything else. +difficulty swallowing that's why pt eats slowly. Per EMR, last BM, 12/18/17 abd is soft and non-distended w/ active bowel sounds. I/O: 1775/0 +1775, IV total intake: 748 ml per 12hrs. PO intake: 42% x 3meals yesterday (Poor). Per MD notes, pt is for colonoscopy and EGD after treatment and once family is decided. Current diet is appropriate at this time. Pt is not appropriate for nutrition education. Current Diet Order/Nutrition Support Pureed x1 day Education Provided Not Indicated Pertinent Medications solu-cortef, piperacillin/tazobactam IV, SSI, vancomycin, keppra Pertinent Labs Na 133 L, K 3.5 WNL (improved), BG 180 H, POC BG 170 H, BUN 18 WNL (improved), ALB 1.1 L, WBC 32 H, H/H 9L/27.9L Height (Feet) 5 feet Height (Inches) 9.00 inches Weight (Pounds) 101 pounds Weight (Calculated Kilograms) 45.832679 kilograms Patient Weight 45.813 kg Body Mass Index 14.91 kg/m2 %IBW 63 [place]/Adjusted Body Weight IBW: 160 lb, 73 kg Weight Status Emaciated Last BM Dec 18, 2017 Difficulty With: Chewing Difficulty With: Swallowing Skin Integrity Comment: Lee scale: 12; per clinical transformation specialist note 12/17/17: 1. Left buttock near issue tuberosity: Pressure ulcer, present on admission. Wound bed is 95% yellow tissue, 5% red tissue. Periwound intact. No odor, no drainage. Measures 1.0 cm x 0.5 cm. 2. Right buttock near issue tuberosity:Pressure ulcer, present on admission. Wound bed is 95% yellow tissue, 5% red tissue. Periwound intact. No odor, no drainage. Measures 1.1 cm x 0.9 cm. 3. Anal area: Scar tissue with overgrowth, area is eroding. 4. Right buttock: a. Wound, present on admission. Wound bed is 100% yellow tissue. No odor, no drainage. Measures 0.4 cm x 0.2 cm. b. Wound, present on admission. Wound bed is 100% yellow tissue. No odor, no drainage. Measures 0.6 cm x 0.4 cm. 5. Left foot, great toe, distal aspect: Chronic wound, present on admission. Wound bed has 100% black eschar. No odor, no drainage. Wound measures 0.6 cm x 1.1 cm. 6. Right foot, great toe, distal aspect: a. Lateral wound: Chronic wound, present on admission. Wound bed has 100% black eschar. No odor, no drainage. Measures 0.8 cm x 1.0 cm. b. Medial wound: Chronic wound, present on admission. Wound bed has 100% black eschar. No odor, no drainage. Measures 1.2 cm x 1.3 cm. 7. Anterior nose: Chronic wound, present on admission. Wound bed has 100% dark brown eschar. No odor, no drainage. Measures 1.0 cm x 1.2 cm. 8. Right lateral nose: Chronic wound, present on admission. Wound bed has 100% dark brown eschar. No odor, no drainage. per nursing notes, 2+ non-pitting edema of bilateral arm Current % PO Poor 41% (improving) Estimated Energy Expenditure (kcals/day) 6405-1202 kcal/day (30-35 kcal/kg IBW for wt gain promotion, sepsis) Estimated Protein Required (g/day) 110-146 gm/day (1.5-2 gm/kg IBW for wt gain promotion, sepsis, wound healing) Estimated Fluid Required (l/day) 1.2 L/day (25 ml/kg CBW for geriatric maintenance) Problem/Etiology/Signs/Symptoms Malnutrition related to FTT and lack of appetite as evidenced by BMI: 15.2 kg/m2, 63% of IBW, and negligible PO intakes. *ongoing Expected Outcomes/Goals - Monitor appetite and PO intakes w/ goal of pt meeting at least 50% of estimated nutritional needs, labs trending WNL, normal GI function, and skin integrity/wt maintenance Dietitian Recommendations * Recommend continuing pureed diet per MD (oral supplement provides an additional 1080 kcal/day and 42 gm protein/day) Follow Up High Risk: F/U in 2-3days
--- NOTE | 2017-12-18 10:44 | NUR ---
Dietitian Recommendations * Recommend continuing pureed diet per MD (oral supplement provides an additional 1080 kcal/day and 42 gm protein/day) Please see Nutrition F/U notes for details. THEO, RD
--- NOTE | 2017-12-18 12:00 | NUR ---
blood glucose 184. 2 units of RI is given subcut.
[2017-12-18] MEDS: INSULIN REGULAR, HUMAN 100 UNITS/ML, 10 ML VIAL (novoLIN R) SUBCUT PRN ×3 (12:17→21:50)
--- NOTE | 2017-12-18 13:25 | NUR ---
Patient is fed by his , with supervision of RN. No signs of aspiration noted.
[2017-12-18] MEDS: HYDROCORTISONE SOD SUCC 100 MG/2 ML VIAL IVP SCH ×2 (14:20→21:37)
[2017-12-18] MEDS: metroNIDAZOLE 500 mg/NS 100 ML IV SCH ×2 (14:21→21:12)
--- NOTE | 2017-12-18 15:23 | NUR ---
Patient is at rest, no signs of distress noted. Patient is turned and repositioned for comfort.
--- NOTE | 2017-12-18 17:00 | NUR ---
blood sugar 269. 6 units of RI will given subcut.
--- NOTE | 2017-12-18 18:30 | NUR ---
patient is being fed by his daughter with supervision of RN. POC is updated and explained.
[2017-12-18] MEDS ORDERED: ALBUMIN HUMAN 25% 100 ML IV ONE (19:30)
--- NOTE | 2017-12-18 20:00 | NUR ---
PM rounds Pt awake alert oriented x 3. Place, Name and . Pt Martiniquais speaking, but able to speak some Indonesian. Pt on 2L nasal cannula in place. tolerated well. Spo2 100% at the time. Pt's daughter at bedside. aware of plan of care. multiple wounds, bruise and dry scab noted. PICC noted on the right upper arm. Safety measures maintained. Bed in the lowest positioned, locked. Educated pt use call light for assistance. Verbalized understanding. Call light within reached. will continue to monitor.
[2017-12-19] VITALS (24 sets, daily range): BP systolic 83–150
[2017-12-19] MEDS: PIPERACILLIN/TAZO 3.375/DEX-IS 50 ML IV SCH ×2 (00:30→06:12)
[2017-12-19] MEDS: D5/0.45 NS 1,000 ML IV SCH ×2 (04:51→23:59)
[2017-12-19] MEDS: metroNIDAZOLE 500 mg/NS 100 ML IV SCH ×3 (06:12→21:11)
[2017-12-19] MEDS: HYDROCORTISONE SOD SUCC 100 MG/2 ML VIAL IVP SCH ×3 (06:13→21:13)
[2017-12-19] MEDS: INSULIN REGULAR, HUMAN 100 UNITS/ML, 10 ML VIAL (novoLIN R) SUBCUT PRN ×3 (06:28→21:20)
[2017-12-19 07:08] LABS: HEMATOCRIT 29.9 % (36-54); HEMOGLOBIN 9.6 g/dL (14.0-18.0); MEAN CORPUSCULAR HEMOGLOBIN 29 pg (27-31); MEAN CORPUSCULAR HGB CONC 32 % (32-36); MEAN CORPUSCULAR VOLUME 91 fL (79.0-98.0); PLATELET COUNT (AUTO) 266 K/uL (130-430); RED BLOOD CELL COUNT(AUTO) 3.29 MIL/uL (4.2-6.2); RED CELL DISTRIBUTION WIDTH 15.3 % (9.0-15.0); WHITE BLOOD COUNT (AUTO) 29.1 K/uL (4.8-10.8)
[2017-12-19 07:27] LABS: ALANINE AMINOTRANSFERASE 27 U/L (12-78); ALBUMIN 2.3 g/dL (3.4-4.8); ANION GAP 8 (5-15); ASPARTATE AMINOTRANSFERASE 17 U/L (10-37); CALCIUM 8.2 mg/dL (8.4-11.0); CHLORIDE 104 mmol/L (98-107); CREATININE 0.97 mg/dL (0.55-1.30); GLUCOSE 227 mg/dL (70-99); POTASSIUM 3.4 mmol/L (3.5-5.1); SODIUM SERUM 132 mmol/L (136-145); TOTAL BILIRUBIN 0.4 mg/dL (0.0-1.0); UREA NITROGEN, BLOOD 20 mg/dL (8-21)
--- NOTE | 2017-12-19 07:30 | NUR ---
AM ROUNDS RECEIVED PT UP IN BED. AWAKE, ALERT, ORIENTED TO NAME ONLY. REORIENTED X3. BREATHING IS EVEN AND UNLABORED ON 2L/MIN, NC. RD OF CALL NOTED. ENCOURAGED PT TO CALL ME WITH ANY NEEDS.
--- NOTE | 2017-12-19 07:50 | NUR ---
FEEDER ASSISTED PT WITH BREAKFAST. PT IS A TOTAL CARE AND UNABLE TO FEED HIMSELF. PT STEVE WELL AND ATE 75%
[2017-12-19 07:53] LABS: BAND % (MANUAL) 1 % (0-6); LYMPHOCYTES % (MANUAL) 6 % (20-46); METAMYELOCYTES % 3 % (0-0); MYELOCYTES % 1 % (0-0)
[2017-12-19] MEDS: BALSAM PERU/CASTOR OIL 60 GM OINT...G. TP SCH (09:11)
[2017-12-19] MEDS: VANCOMYCIN HCL 125 MG CAPSULE PO SCH ×4 (09:11→22:04)
[2017-12-19] MEDS: levETIRAcetam 500 MG TABLET PO SCH ×2 (09:11→20:38)
[2017-12-19 09:12] LABS: BASOPHILS % (MANUAL) 0 % (0-2); EOSINOPHILS % (MANUAL) 0 % (0-7); MONOCYTES % (MANUAL) 0 % (0-11)
[2017-12-19] MEDS: MUPIROCIN NASAL 2% OINT. 1 GM NS SCH ×2 (09:15→21:13)
[2017-12-19] MEDS ORDERED: cefTRIAXone 1 GM in D5W 50 ML IV ONE (11:00)
[2017-12-19] MEDS ORDERED: cefTRIAXone 1 GM in D5W 50 ML IV SCH (11:00)
--- NOTE | 2017-12-19 16:05 | NUR ---
WOUND RE-EVALUATION: Patient received in a [place] Bed with an Atmos-Air 9000 mattress, awake, slow to respond, confused. Patient is unable to turn in bed independently. Lee Score is a 13. Intrinsic factors that delay wound healing: Diabetes mellitus, coronary artery disease, severe hypoalbuminemia, hyperglycemia. Extrinsic factors that delay wound healing: Immobility. Microbiology: Blood culture results 2 negative. Stool C. difficile culture positive. Stool ova and parasites in progress. Wound care performed by dayshift nurse. Dressings not removed for assessment secondary to doing so would decrease wound temperature and retard wound healing rate. Wound Assessment: 1. Left buttock near issue tuberosity: Pressure ulcer, present on admission. 2. Right buttock near issue tuberosity: Pressure ulcer, present on admission. Recommend continue: Cleanse wounds with normal saline. Place moisture barrier cream onto franci-wounds. Apply Venelex ointment onto wound beds. Cover with foam dressings. Perform wound care daily, and as needed for dressing soiling or dislodgement. 3. Anal area: Scar tissue with overgrowth, area is eroding. Per charge nurse, area has small sanguineous drainage. Recommend: Cleanse site with mild soap and water. Pat dry. Place moisture barrier cream onto site. Cover site with alginate dressing, then foam dressing. Perform site care daily, and as needed for dressing soiling or dislodgment. Reposition patient [id number]-cr-vqde only every 2 hours. Do not allow patient to lie in supine. 4. Right buttock: a. Wound, present on admission. b. Wound, present on admission. Recommend continue: Cleanse wounds with normal saline. Place moisture barrier cream onto franci-wounds. Apply Venelex ointment onto wound beds. Cover with foam dressings. Perform wound care daily, and as needed for dressing soiling or dislodgement. 5. Left foot, great toe, distal aspect: Chronic wound, present on admission. Wound bed has 100% black eschar. No odor, no drainage. 6. Right foot, great toe, distal aspect: a. Lateral wound: Chronic wound, present on admission. Wound bed has 100% black eschar. No odor, no drainage. b. Medial wound: Chronic wound, present on admission. Wound bed has 100% black eschar. No odor, no drainage. Recommend continue: No dressings needed. Continue to monitor sites for worsening condition, opening, or drainage. Contact wound care nurse if sites open or drain. 7. Anterior nose: Chronic wound, present on admission. Wound bed has 100% dark brown eschar. No odor, no drainage. 8. Right lateral nose: Chronic wound, present on admission. Wound bed has 100% dark brown eschar. No odor, no drainage. Recommend continue: No dressings needed. Continue to monitor sites for worsening condition, opening, or drainage. Contact wound care nurse if sites open or drain. If nasal cannula or other respiratory support equipment is use, may cover areas with optifoam gentle dressings. Also recommend continue: Reposition patient side to side only every 2 hours with pillow support, and off-load pressure areas with pillows for pressure re-distribution. Offload, elevate and float bilateral heels with one pillow lengthwise under each extremity at all times. Perform skin care and monitor skin integrity Q shift. Use moisture barrier cream on buttocks and other moisture susceptible areas QID and as needed for soiling. Place patient on a low air-loss mattress.
--- NOTE | 2017-12-19 18:39 | NUR ---
CLOSING NOTE PT RESTING IN BED. ALL NEEDS MET. HOURLY ROUNDS OBSERVED.
[2017-12-19] MEDS: traMADol HCL HCL 50 MG TABLET (ULTRAM) PO PRN (20:38)
[2017-12-19] MEDS: PHENYLEPHRINE HCL 30 MG in NS 247 ML IV PRN (23:49)
[2017-12-20] VITALS (25 sets, daily range): BP systolic 90–146
[2017-12-20] MEDS: metroNIDAZOLE 500 mg/NS 100 ML IV SCH ×3 (06:24→22:00)
[2017-12-20] MEDS: HYDROCORTISONE SOD SUCC 100 MG/2 ML VIAL IVP SCH ×3 (06:24→21:21)
[2017-12-20 06:45] LABS: ALANINE AMINOTRANSFERASE 31 U/L (12-78); ALBUMIN 1.6 g/dL (3.4-4.8); ANION GAP 11 (5-15); ASPARTATE AMINOTRANSFERASE 22 U/L (10-37); CALCIUM 7.7 mg/dL (8.4-11.0); CREATININE 1.06 mg/dL (0.55-1.30); GLUCOSE 321 mg/dL (70-99); TOTAL BILIRUBIN 0.2 mg/dL (0.0-1.0); UREA NITROGEN, BLOOD 23 mg/dL (8-21)
[2017-12-20 06:46] LABS: HEMOGLOBIN 9.4 g/dL (14.0-18.0); LYMPHOCYTES # (AUTO) 0.8 K/uL (1.0-5.5); LYMPHOCYTES % (AUTO) 2.2 % (20.5-51.5); MEAN CORPUSCULAR HEMOGLOBIN 29 pg (27-31); MEAN CORPUSCULAR HGB CONC 33 % (32-36); MEAN CORPUSCULAR VOLUME 90 fL (79.0-98.0); MONOCYTES # (AUTO) 0.3 K/uL (0.0-1.0); MONOCYTES % (AUTO) 0.7 % (1.7-9.3); NEUTROPHILS % (AUTO) 97.1 % (40.0-70.0); PLATELET COUNT (AUTO) 308 K/uL (130-430); RED BLOOD CELL COUNT(AUTO) 3.22 MIL/uL (4.2-6.2); RED CELL DISTRIBUTION WIDTH 15.2 % (9.0-15.0)
[2017-12-20 06:53] LABS: CHLORIDE 103 mmol/L (98-107); SODIUM SERUM 131 mmol/L (136-145)
[2017-12-20] MEDS: INSULIN REGULAR, HUMAN 100 UNITS/ML, 10 ML VIAL (novoLIN R) SUBCUT PRN ×4 (06:56→21:25)
[2017-12-20 06:58] LABS: POTASSIUM 2.9 mmol/L (3.5-5.1)
--- NOTE | 2017-12-20 07:30 | NUR ---
HANDOFF HANDOFF REPORT RECEIVED FROM AUGUSTO LEW. PATIENT IS ASLEEP IN BED. NO S/S OF ACUTE DISTRESS. 2L NC. PATIENT IS ON PHENYLEPHRINE @ 50MCG/KG/MIN. NO ACUTE DISTRESS AT THIS TIME. WILL CONTINUE WITH POC.
[2017-12-20] MEDS ORDERED: POTASSIUM CHLORIDE 40 MEQ in NS 250 ML IV SCH (09:00)
[2017-12-20] MEDS ORDERED: KCL 40 mEq in 100 mL (PREMIX) 100 ML IV ONE (09:00)
--- NOTE | 2017-12-20 09:01 | NUR ---
ROUNDS ROUNDS WITH DR. DOLAN, PLAN IS TO WEAN OMID GTT TO 25MCG/KG/MIN AND CONTINUE TO WEAN TOLERATED. UPDATED ON WBC 37, AWARE OF K 2.9. ALSO, UPDATED ON RLE COOL TO TOUCH, DISCOLORATION. WILL CONTINUE TO MONITOR PATIENT.
[2017-12-20] MEDS: VANCOMYCIN HCL 125 MG CAPSULE PO SCH ×4 (09:11→21:21)
[2017-12-20] MEDS: MUPIROCIN NASAL 2% OINT. 1 GM NS SCH ×2 (09:11→21:20)
[2017-12-20] MEDS: cefTRIAXone 1 GM in D5W 50 ML IV SCH (09:11)
[2017-12-20] MEDS: PHENYLEPHRINE HCL 30 MG in NS 247 ML IV PRN ×2 (09:26→17:35)
--- NOTE | 2017-12-20 09:45 | NUR ---
PT NOT TOLERATING NEOSYNEPHRINE AT 25 MCGS ORDERED. SBP 80'S. WILL TITRATE UP ACCORDINGLY. NEOSYNEPHRINE INCREASED TO 50 MCGS.
[2017-12-20] MEDS: levETIRAcetam 500 MG TABLET PO SCH ×2 (10:45→21:20)
--- NOTE | 2017-12-20 12:00 | NUR ---
RN ROUNDS RN ROUNDING. PATIENT CONSUMED 50% OF LUNCH. FAMILY UPDATED ON POC. WOUND CARE DONE. OMID @ 60MCG/KG/MIN. NO FURTHER QUESTIONS AT THIS TIME.
--- NOTE | 2017-12-20 14:00 | NUR ---
RN ROUNDS PATIENT IS AWAKE AND ORIENTED IN BED. NO COMPLAINTS AT THIS TIME. OMID STILL INFUSING @ 70MCG/KG/MIN, PATIENT COMFORTABLE ON RA. WILL CTM.
--- NOTE | 2017-12-20 14:14 | NUR ---
Nutrition F/U Admitting Diagnosis FTT Reviewed Pertinent Medical/Surgical Hx Medical Record Primary RN Medical History Comment: PMH: DM, CAD, dementia, HTN, recurrent UTI per MD notes Pt also found w/ sepsis, cachexia, anemia per MD notes 12/20/17 MD progress notes: septic shock, aspiration pneumonia, complicated UTI, possible metastatic CA, DM, COPD, C. diff; plan - wean off pressor; discussed w/ family; poor prognosis Subjective Information Pt seen resting in bed, +nasal cannula, w/ multiple family members at bedside and RN providing care. RN reported that pt ate about 25% of breakfast today. Per EMR, PO Intakes: 75% average x1 meal. Active bowel sounds. Last BM x2 12/20/17. I/O: 740/0 (+740 ml) per 12 hours. Pt's BG levels have increased since last RD visit. Pt may benefit from diabetic therapeutic diet as well. Pt is not appropriate for nutrition education. Current Diet Order/Nutrition Support Pureed x3 days Education Provided Not Indicated Pertinent Medications solu-cortef, SSI, vancomycin, keppra Pertinent Labs Na 131 L, K 2.9 L, BG 321 H, POC BG 290 H, BUN 23 H, ALB 1.6 L, WBC 37 H, H/H 9.4 L/29 L Height (Feet) 5 feet Height (Inches) 9.00 inches Weight (Pounds) 101 pounds (admission) Weight (Calculated Kilograms) 45.748734 kilograms Patient Weight 45.813 kg Body Mass Index 14.91 kg/m2 %IBW 63 [place]/Adjusted Body Weight IBW: 160 lb, 73 kg Weight Status Emaciated Last BM 12/20/17 Difficulty With: Chewing Difficulty With: Swallowing Skin Integrity Comment: Lee scale: 14; per Wound Secialist note 12/19/17: 1. Left buttock near issue tuberosity: Pressure ulcer, present on admission. 2. Right buttock near issue tuberosity: Pressure ulcer, present on admission. 3. Anal area: Scar tissue with overgrowth, area is eroding. 4. Right buttock: a. Wound, present on admission. b. Wound, present on admission. 5. Left foot, great toe, distal aspect: Chronic wound, present on admission. 6. Right foot, great toe, distal aspect: a. Lateral wound: Chronic wound, present on admission. 7. Anterior nose: Chronic wound, present on admission. 8. Right lateral nose: Chronic wound, present on admission. Per nursing notes, 2+ non-pitting edema of bilateral arm. Current % PO Poor/fair Estimated Energy Expenditure (kcals/day) 1575-8791 kcal/day (30-35 kcal/kg IBW for wt gain promotion, sepsis) Estimated Protein Required (g/day) 110-146 gm/day (1.5-2 gm/kg IBW for wt gain promotion, sepsis, wound healing) Estimated Fluid Required (l/day) 1.2 L/day (25 ml/kg CBW for geriatric maintenance) Problem/Etiology/Signs/Symptoms (modified) Malnutrition related to FTT and lack of appetite as evidenced by BMI: 15.2 kg/m2, 63% of IBW, and poor/fair PO intakes. *ongoing Altered nutrition-related labs related to endocrine dysfunction as evidenced by elevated BG and POC BG lab values. Expected Outcomes/Goals - Monitor appetite and PO intakes w/ goal of pt meeting at least 50% of estimated nutritional needs, labs trending WNL, normal GI function, and skin integrity/wt maintenance Dietitian Recommendations * Recommend pureed, CCHO diet (Boost Glucose Control TID oral supplement provides an additional 750 kcal/day and 42 gm protein/day) Follow Up Moderate Risk: F/U in 3-5 days
--- NOTE | 2017-12-20 14:24 | NUR ---
Dietitian Recommendations * Recommend pureed, CCHO diet (Boost Glucose Control TID oral supplement provides an additional 750 kcal/day and 42 gm protein/day) LP, RD Please refer to Nutrition F/U for details.
--- NOTE | 2017-12-20 14:50 | NUR ---
FAILED WOUND CARE UPON ASSESSING PATIENT WOUND, OPTIFOAM SACRAL BORDER (NEW BRAND) DID NOT FIT ON THE WOUND UNABLE TO SECURE TO PATIENT. CHARGE NURSERAMY ATTEMPTED TO REACH WOUND CARE NURSE BY CALLING [facility], THE [place]ER[place] REPAIRER DID NOT KNOW HOW TO REACH HIM. CHARGE NURSE RAMY, TEXTED [facility] NURSE THAT WOUND CARE IS NOT WORKING, BUT NO RESPONSE. PATIENT HAS LOOSE BMS, DRESSING LEFT OPEN TO AIR. DR. LECHUGA HERE, ORDERS FOR SHERIDAN RECEIVED PATIENT AND FAMILY REFUSED SHERIDAN AT THIS TIME. EDUCATED IMPORTANCE OF SHERIDAN CATHETER, AND THAT PATIENT IS AT RISK FOR FURTHER SKIN BREAK DOWN.
[2017-12-20] MEDS: BALSAM PERU/CASTOR OIL 60 GM OINT...G. TP SCH (17:35)
--- NOTE | 2017-12-20 19:25 | NUR ---
HANDOFF REPORT. HANDOFF REPORT GIVEN TO AUGUSTO RAGSDALE. NO FURTHER QUESTIONS AT THIS. TIME. PATIENT REMAINS ON OMID GTT @ 70MCG/KG/MIN. PATIENT BREATHING COMFORTABLY ON RA. WILL CTM.
--- NOTE | 2017-12-20 19:30 | NUR ---
OPENING NOTE PT IN BED, AWAKE, ALERT, ORIENTED, SALVADOREAN SPEAKING. FAMILY IS AT BEDSIDE. NO SIGNS OF DISTRESS, CLAIMS TO HAVE PAIN IN BUTTOCKS, DENIES THE NEED FOR MEDICATION THOUGH ASKS TO BE REPOSITIONED. CLAIMS TO FEEL MORE DISCOMFORT WHEN TURNED TO HIS RIGHT SIDE. PT IS THEREFORE REPOSITIONED TO HIS LEFT. CARE TO RESUME THROUGHOUT SHIFT.
[2017-12-20] MEDS: MIDODRINE HCL 2.5 MG TABLET (PROAMATINE) PO SCH (21:20)
[2017-12-20] MEDS ORDERED: metroNIDAZOLE 500 mg/NS 200 ML IV ONE (22:11)
--- NOTE | 2017-12-20 23:00 | NUR ---
WOUND CARE PT AGREED TO WOUND CARE AFTER URINATING. DIFFICULTY IN DRESSING WOUND ACCORDING TO INSTRUCTION DUE TO WOUND'S PROXIMITY TO RECTUM AND FREQUENCY OF BOWEL MOVEMENTS. DRESSED WITH ALGINATE DRESSING WITH ABD PAD TO SUPPORT.
[2017-12-21] VITALS (24 sets, daily range): BP systolic 55–126
[2017-12-21] MEDS ORDERED: PHENYLEPHRINE HCL 10 MG/ML VIAL (NEOSYNEPHRINE) ONE ×2 (01:30→20:10)
[2017-12-21] MEDS: D5/0.45 NS 1,000 ML IV SCH ×3 (01:53→21:47)
[2017-12-21] MEDS: PHENYLEPHRINE HCL 30 MG in NS 247 ML IV PRN ×3 (01:56→20:20)
--- NOTE | 2017-12-21 04:10 | NUR ---
PAIN MEDICATION PT WHO HAD BEEN PREVIOUSLY DENYING THE NEED FOR PAIN MEDICATIONS. CURRENTLY COMPLAINING OF INABILITY TO SLEEP. DISCUSSED THAT PAIN MEDICATION MAY HELP PT TO SLEEP, AND ULTIMATELY AGREES TO TAKE A DOSE.
[2017-12-21] MEDS: traMADol HCL HCL 50 MG TABLET (ULTRAM) PO PRN (04:15)
[2017-12-21 06:25] LABS: HEMATOCRIT 30.5 % (36-54); HEMOGLOBIN 9.7 g/dL (14.0-18.0); MEAN CORPUSCULAR HEMOGLOBIN 29 pg (27-31); MEAN CORPUSCULAR HGB CONC 32 % (32-36); MEAN CORPUSCULAR VOLUME 91 fL (79.0-98.0); PLATELET COUNT (AUTO) 312 K/uL (130-430); RED BLOOD CELL COUNT(AUTO) 3.36 MIL/uL (4.2-6.2); RED CELL DISTRIBUTION WIDTH 15.4 % (9.0-15.0)
[2017-12-21 06:43] LABS: ALANINE AMINOTRANSFERASE 33 U/L (12-78); ALBUMIN 1.5 g/dL (3.4-4.8); ANION GAP 7 (5-15); ASPARTATE AMINOTRANSFERASE 32 U/L (10-37); CALCIUM 7.9 mg/dL (8.4-11.0); CHLORIDE 107 mmol/L (98-107); CREATININE 1.19 mg/dL (0.55-1.30); GLUCOSE 234 mg/dL (70-99); POTASSIUM 3.6 mmol/L (3.5-5.1); SODIUM SERUM 132 mmol/L (136-145); TOTAL BILIRUBIN 0.3 mg/dL (0.0-1.0); UREA NITROGEN, BLOOD 31 mg/dL (8-21)
[2017-12-21] MEDS: metroNIDAZOLE 500 mg/NS 100 ML IV SCH ×3 (06:43→21:47)
[2017-12-21] MEDS: HYDROCORTISONE SOD SUCC 100 MG/2 ML VIAL IVP SCH ×2 (06:43→20:35)
[2017-12-21] MEDS ORDERED: HYDROCORTISONE SOD SUCC 100 MG/2 ML VIAL ONE (06:43)
[2017-12-21] MEDS: INSULIN REGULAR, HUMAN 100 UNITS/ML, 10 ML VIAL (novoLIN R) SUBCUT PRN ×4 (06:49→20:48)
[2017-12-21 06:58] LABS: WHITE BLOOD COUNT (AUTO) 45.6 K/uL (4.8-10.8)
--- NOTE | 2017-12-21 07:20 | NUR ---
CLOSING NOTE PT IN BED. ASLEEP. NO SIGNS OF DISTRESS, NO APPARENT PAIN OR DISCOMFORT. Addendum: 12/21/17 at 0757 by Rohit Arauz RN CARE TO RESUME THROUGH TO NEXT SHIFT.
--- NOTE | 2017-12-21 07:30 | NUR ---
AM Assessment Pt AAOx1, confused. Pt states no pain or distress at this time. Respirations even and unlabored on RA. Skin warm and dry. Noted multiple skin issues. PICC in MARYAM intact, patent, with IVF and neosynephrine drip 50 mcg/min. SR on monitor, HR 70s-80s. Afebrile. Bowel sounds present. Bed locked in lowest position. Call light in reach. Will continue to monitor.
[2017-12-21] MEDS: cefTRIAXone 1 GM in D5W 50 ML IV SCH (08:42)
[2017-12-21] MEDS: MUPIROCIN NASAL 2% OINT. 1 GM NS SCH (08:43)
[2017-12-21] MEDS: levETIRAcetam 500 MG TABLET PO SCH ×2 (08:43→20:35)
[2017-12-21] MEDS: BALSAM PERU/CASTOR OIL 60 GM OINT...G. TP SCH (08:44)
[2017-12-21] MEDS: MIDODRINE HCL 2.5 MG TABLET (PROAMATINE) PO SCH (08:44)
[2017-12-21] MEDS: VANCOMYCIN HCL 125 MG CAPSULE PO SCH ×4 (08:44→20:36)
[2017-12-21 08:51] LABS: BAND % (MANUAL) 9 % (0-6); BASOPHILS % (MANUAL) 0 % (0-2); EOSINOPHILS % (MANUAL) 0 % (0-7); LYMPHOCYTES % (MANUAL) 1 % (20-46); MONOCYTES % (MANUAL) 3 % (0-11)
--- NOTE | 2017-12-21 12:30 | NUR ---
Dr. Ayala, in for Dr. Holman, examining pt. Dr. Ayala speaking with family members separately regarding plan of care for patient.
--- NOTE | 2017-12-21 14:03 | NUR ---
DISCHARGE PLANNING NOTE: [facility] received pt's order for hospice evaluation. [facility] called and spoke with PA Special Education Teacher, Jie ([phone]). Jie states that [facility] Case Management Staff will follow up regarding hospice evaluation for pt. Jie requested for LITERARY WRITER to fax pt's order and information to PA Case Management Department ([phone]). LITERARY WRITER faxed requested information. [facility] updated ICU staff. Addendum: 12/21/17 at 1421 by Helena Knowles LCSW [facility] received a call from PA Special Education Teacher, Zeke ([phone]). Zeke states that he will contact hospice agency for pt's evaluation and will provided them with pt's dtr, Lori, contact information ([phone]) to make arrangements.
--- NOTE | 2017-12-21 17:00 | NUR ---
Pt agreed to linen change, CHG bath, and wound care. Administered CHG bath and linen change and wound care. Wound on rectum noted with bleeding and mixed with stool. Applied venelex and zguard and covered with foam dressing and tegaderm. Pt tolerated well.
--- NOTE | 2017-12-21 19:25 | NUR ---
Closing/Endorsement Pt resting in bed, states no pain or discomfort at this time. Neosynephrine increased to 90 mcg/min. Bed locked in lowest position. Family at bedside. Endorsed plan of care to night warehouse selector RN via SBAR tool.
--- NOTE | 2017-12-21 19:30 | NUR ---
Initial Notes Received patient resting in bed, awake, alert, [place] speaking, family at bedside. Patient denies any acute distress or pain at this time. Vital signs stable, patient on neosynephrine drip @ 90mcg/min to maintain BP. Lower extremities cold to touch with poor circulation. IV site patent/clean/dry. Educated patient and family regarding use of call light for assistance and fall precautions, all verbalized understanding. Call light in hand, fall precautions in place, will continue to monitor.
[2017-12-21] MEDS ORDERED: NOREPINEPHRINE 4 MG/4 ML VIAL IV ONE (19:42)
[2017-12-21] MEDS: NOREPINEPHRINE BITARTRATE 4 MG in D5W 246 ML IV PRN (19:53)
[2017-12-21] MEDS: MIDODRINE HCL 5 MG TABLET (PROAMATINE) PO SCH (20:36)
--- NOTE | 2017-12-21 22:45 | NUR ---
Attempted to Titrate Propofol Drip Titrated propofol drip down to 45mcgs/kg/min. Ativan given to assist with restlessness. Addendum: 12/21/17 at 2319 by Dominik Mcdonald RN ERROR: Wrong patient, please disregard.
--- NOTE | 2017-12-21 23:00 | NUR ---
Nursing Notes Patient resting in bed, awake. Patient denies any acute distress or pain at this time. Repositioned patient and skin care provided with assistance from family. Vital signs stable. Needs addressed. Call light in hand, fall precautions in place. Will continue to monitor for safety and changes. Family states they will be leaving for the night shortly.
[2017-12-22] VITALS (24 sets, daily range): BP systolic 67–141
[2017-12-22] MEDS: ACETAMINOPHEN 325 MG TABLET PO PRN (00:52)
[2017-12-22] MEDS ORDERED: PHENYLEPHRINE HCL 10 MG/ML VIAL (NEOSYNEPHRINE) ONE ×2 (01:27→08:00)
[2017-12-22] MEDS: PHENYLEPHRINE HCL 30 MG in NS 247 ML IV PRN ×4 (02:07→15:58)
[2017-12-22] MEDS: metroNIDAZOLE 500 mg/NS 100 ML IV SCH ×3 (06:16→22:00)
[2017-12-22] MEDS: INSULIN REGULAR, HUMAN 100 UNITS/ML, 10 ML VIAL (novoLIN R) SUBCUT PRN ×4 (06:23→21:00)
[2017-12-22 06:50] LABS: BASOPHILS # (AUTO) 0.1 K/uL (0.0-0.2); BASOPHILS % (AUTO) 0.2 % (0.0-2.0); EOSINOPHILS % (AUTO) 0.1 % (0.0-4.0); HEMATOCRIT 29.8 % (36-54); HEMOGLOBIN 9.9 g/dL (14.0-18.0); LYMPHOCYTES # (AUTO) 1.1 K/uL (1.0-5.5); LYMPHOCYTES % (AUTO) 2.3 % (20.5-51.5); MEAN CORPUSCULAR HEMOGLOBIN 30 pg (27-31); MEAN CORPUSCULAR HGB CONC 33 % (32-36); MEAN CORPUSCULAR VOLUME 91 fL (79.0-98.0); MONOCYTES # (AUTO) 0.1 K/uL (0.0-1.0); MONOCYTES % (AUTO) 0.3 % (1.7-9.3); NEUTROPHILS # (AUTO) 46.9 K/uL (1.8-7.7); NEUTROPHILS % (AUTO) 97.1 % (40.0-70.0); PLATELET COUNT (AUTO) 313 K/uL (130-430); RED BLOOD CELL COUNT(AUTO) 3.29 MIL/uL (4.2-6.2); RED CELL DISTRIBUTION WIDTH 15.4 % (9.0-15.0)
--- NOTE | 2017-12-22 06:55 | NUR ---
Closing Notes Patient resting in bed with eyes closed, easily aroused, no change to mentation. Patient denies any acute distress or pain at this time. Breathing is even and unlabored. Vital signs stable, on Neosynephrine @ 90 mcg/min. IV site patent/clean/dry, no S/S infection/infiltration noted. Dressing change provided to rectal wound, bed bath and linen change provided during shift. Needs addressed throughout shift. Call light in hand, fall precautions in place. Will continue to monitor for changes and safety, and endorse all patient care/needs to oncoming nurse.
[2017-12-22 06:58] LABS: WHITE BLOOD COUNT (AUTO) 48.2 K/uL (4.8-10.8)
[2017-12-22 07:02] LABS: ALANINE AMINOTRANSFERASE 38 U/L (12-78); ALBUMIN 1.4 g/dL (3.4-4.8); ANION GAP 11 (5-15); ASPARTATE AMINOTRANSFERASE 37 U/L (10-37); CALCIUM 7.7 mg/dL (8.4-11.0); CHLORIDE 105 mmol/L (98-107); GLUCOSE 275 mg/dL (70-99); PHOSPHORUS 2.7 mg/dL (2.7-4.5); POTASSIUM 3.3 mmol/L (3.5-5.1); SODIUM SERUM 130 mmol/L (136-145); TOTAL BILIRUBIN 0.3 mg/dL (0.0-1.0); UREA NITROGEN, BLOOD 35 mg/dL (8-21)
--- NOTE | 2017-12-22 07:20 | NUR ---
AM Assessment Pt AAOx2, forgetful, Occitan speaking. Pt states no pain or distress currently. Respirations even and unlabored on RA. Skin warm and moist. BUE noted with weeping edema, nonpitting. PICC in MARYAM intact, patent, IVF infusing and neosynephrine drip 80 mcg/min. Multiple skin issues noted. Right lower extremity noted with dark discoloration, cool to touch. Scrotal swelling noted. Noted rectal wound actively bleeding. Pt also noted with loose stools. SR on juvenile justice officer, HR 90s. Bed locked in lowest position. Call light in reach. Will continue to monitor.
[2017-12-22] MEDS: HYDROCORTISONE SOD SUCC 100 MG/2 ML VIAL IVP SCH ×2 (08:23→21:00)
[2017-12-22] MEDS: VANCOMYCIN HCL 125 MG CAPSULE PO SCH (08:24)
[2017-12-22] MEDS: MIDODRINE HCL 5 MG TABLET (PROAMATINE) PO SCH (08:24)
[2017-12-22] MEDS: levETIRAcetam 500 MG TABLET PO SCH ×2 (08:26→21:00)
[2017-12-22] MEDS: cefTRIAXone 1 GM in D5W 50 ML IV SCH (08:26)
[2017-12-22] MEDS: BALSAM PERU/CASTOR OIL 60 GM OINT...G. TP SCH (08:26)
[2017-12-22] MEDS: VANCOMYCIN HCL ORAL SOLUTION 250 MG/5 ML, 80 ML PO SCH ×4 (09:00→21:00)
[2017-12-22] MEDS ORDERED: POTASSIUM CHLORIDE 20 MEQ/PKT PACKET PO ONE (12:00)
--- NOTE | 2017-12-22 14:30 | NUR ---
Pt's family at bedside. Frequently instructed family about infection control and washing hands before leaving room, verbalizes understanding but needs frequent reminders.
[2017-12-22] MEDS: D5/0.45 NS 1,000 ML IV SCH (14:40)
--- NOTE | 2017-12-22 15:30 | NUR ---
Pt's family meeting with hospice loss control representative, Diana STEELE. Pt's family states they agree with putting pt "with hospice care." building maintenance custodian and MD aware.
--- NOTE | 2017-12-22 16:30 | NUR ---
Pt agreed to CHG bath and linen change. Administered CHG and wound care per hand glass cutter recommendations. Pt still with active bleeding in rectum and large amount of loose stool. Pt also noted with desaturation on monitor to 88%, started pt on 3L NC. Will continue to monitor.
--- NOTE | 2017-12-22 18:45 | NUR ---
Pt noted with coffee ground/red emesis, approximately 30 ml. Performed oral care and suctioning and instructed pt's family to keep HOB elevated to prevent aspiration. Notified primer charger.
[2017-12-22] MEDS: traMADol HCL HCL 50 MG TABLET (ULTRAM) PO PRN (18:46)
--- NOTE | 2017-12-22 19:10 | NUR ---
Closing/Endorsement Pt in bed, states no acute distress at this time. Provided pt with PRN pain medication per MD order. IVF infusing, neosynephrine 80 mcg/min. Bed locked in lowest position. Call light in reach. Endorsed plan of care to shift manager RN.
--- NOTE | 2017-12-22 19:40 | NUR ---
PM ASSESSMENT PT AWAKE, EYES OPEN, A/OX1. AFEBRILE. SR ON THE MONITOR. MARYAM PICC, DOUBLE LUMEN, INFUSING D5 1/2NS, AND NEOSYNEPHRINE. NC @3L [id number] POC DISCUSSED, FAMILY STATED UNDERSTANDING. CALL LIGHT W/IN REACH. SAFETY PRECAUTIONS IN PLACE. WILL CONTINUE TO MONITOR.
--- NOTE | 2017-12-22 21:00 | NUR ---
MEDS DID NOT SAVE 2100 MEDS GIVEN, BS 279, 6UNITS INSULIN REGULAR GIVEN VERIFIED BY 2 RNS, MEDS SCANNED BUT DID NOT SAVE.
[2017-12-22] MEDS ORDERED: HYDROcodone/ACETAMIN 10-325 MG TAB PO PRN ×2 (22:30)
[2017-12-22] MEDS ORDERED: SIMETHICONE 80 MG TAB.CHEW PO PRN (22:30)
[2017-12-22] MEDS ORDERED: ZOLPIDEM TARTRATE 5 MG TABLET PO PRN (22:30)
[2017-12-22] MEDS ORDERED: ONDANSETRON HCL 4 MG/2 ML VIAL IM PRN (22:30)
[2017-12-22] MEDS ORDERED: traMADol HCL HCL 50 MG TABLET (ULTRAM) PO PRN (22:30)
[2017-12-22] MEDS ORDERED: BISACODYL 10 MG/SUPPOSITORY RC PRN (22:30)
[2017-12-22] MEDS ORDERED: POTASSIUM CHLORIDE 20 MEQ TAB.PRT.SR PO PRN (22:30)
[2017-12-22] MEDS ORDERED: LORazepam 2 MG/ML VIAL IVP PRN (22:30)
[2017-12-22] MEDS: MORPHINE 2 MG/ML INJ. SYRINGE IVP PRN (22:49)
[2017-12-22] MEDS: ONDANSETRON HCL 4 MG/2 ML VIAL IVP PRN (22:57)
[2017-12-23] VITALS (13 sets, daily range): BP systolic 68–121
[2017-12-23] MEDS: ONDANSETRON HCL 4 MG/2 ML VIAL IVP PRN (03:36)
[2017-12-23] MEDS: MORPHINE 2 MG/ML INJ. SYRINGE IVP PRN (03:36)
[2017-12-23] MEDS: PHENYLEPHRINE HCL 30 MG in NS 247 ML IV PRN ×3 (04:20→11:27)
[2017-12-23] MEDS: D5/0.45 NS 1,000 ML IV SCH (06:31)
[2017-12-23] MEDS: metroNIDAZOLE 500 mg/NS 100 ML IV SCH (06:31)
[2017-12-23] MEDS: INSULIN REGULAR, HUMAN 100 UNITS/ML, 10 ML VIAL (novoLIN R) SUBCUT PRN (06:34)
[2017-12-23 06:41] LABS: BASOPHILS # (AUTO) 0.1 K/uL (0.0-0.2); BASOPHILS % (AUTO) 0.2 % (0.0-2.0); EOSINOPHILS # (AUTO) 0.1 K/uL (0.0-0.4); EOSINOPHILS % (AUTO) 0.1 % (0.0-4.0); HEMATOCRIT 30.9 % (36-54); HEMOGLOBIN 10.2 g/dL (14.0-18.0); LYMPHOCYTES % (AUTO) 1.5 % (20.5-51.5); MEAN CORPUSCULAR HEMOGLOBIN 31 pg (27-31); MEAN CORPUSCULAR HGB CONC 33 % (32-36); MEAN CORPUSCULAR VOLUME 92 fL (79.0-98.0); MONOCYTES # (AUTO) 0.4 K/uL (0.0-1.0); MONOCYTES % (AUTO) 0.6 % (1.7-9.3); NEUTROPHILS # (AUTO) 66.2 K/uL (1.8-7.7); NEUTROPHILS % (AUTO) 97.6 % (40.0-70.0); PLATELET COUNT (AUTO) 240 K/uL (130-430); RED BLOOD CELL COUNT(AUTO) 3.36 MIL/uL (4.2-6.2); RED CELL DISTRIBUTION WIDTH 15.5 % (9.0-15.0)
[2017-12-23 06:58] LABS: ALANINE AMINOTRANSFERASE 41 U/L (12-78); ALBUMIN 1.4 g/dL (3.4-4.8); ANION GAP 11 (5-15); ASPARTATE AMINOTRANSFERASE 49 U/L (10-37); CALCIUM 7.6 mg/dL (8.4-11.0); CHLORIDE 107 mmol/L (98-107); CREATININE 1.43 mg/dL (0.55-1.30); GLUCOSE 239 mg/dL (70-99); POTASSIUM 3.7 mmol/L (3.5-5.1); SODIUM SERUM 132 mmol/L (136-145); TOTAL BILIRUBIN 0.3 mg/dL (0.0-1.0); UREA NITROGEN, BLOOD 39 mg/dL (8-21)
[2017-12-23 07:19] LABS: WHITE BLOOD COUNT (AUTO) 67.8 K/uL (4.8-10.8)
[2017-12-23] MEDS: cefTRIAXone 1 GM in D5W 50 ML IV SCH (07:53)
[2017-12-23] MEDS: VANCOMYCIN HCL ORAL SOLUTION 250 MG/5 ML, 80 ML PO SCH (07:54)
[2017-12-23] MEDS: HYDROCORTISONE SOD SUCC 100 MG/2 ML VIAL IVP SCH (07:54)
[2017-12-23] MEDS: BALSAM PERU/CASTOR OIL 60 GM OINT...G. TP SCH (07:55)
--- NOTE | 2017-12-23 08:00 | NUR ---
RN OPENING NOTE PATIENT RESTING ON BED, OPEN EYES, BUT SPOKE A COUPLE OF GARBLED SOUNDS. PATIENT VITAL SIGNS SHOW HYPOTENSION, PATIENT IS ON NEOSYNEPHRINE A VASOPRESSOR. WILL TITRATE PRESCRIBED. PATIENT IS BREATHING AT ABOUT 12 BRATH/ MIN, PATIENT WAS ASSESSED AND THE ASSESSMENT WILL BE CHARTED. PATIENT WILL BE GIVEN HIS PRESCRIBED MED AT 0900. ORAL CARE WAS DONE FOR THE PATIENT AND THE PATIENT WAS REPOSITIONED IN BED, WILL CONTINUE TO MONITOR
[2017-12-23] MEDS: levETIRAcetam 500 MG TABLET PO SCH (09:03)
--- NOTE | 2017-12-23 10:00 | NUR ---
FAMILY MEMBERS STARTING COMING TO SEE THE PATIENT. HOSPICE SERVICE CALLED ( [facility]) AND TALKED TO MARVIN, THAT ASKED ABOUT THE PATIENT WEIGHT AND HEIGHT. INFORMATION WAS LATER RELATED TO THE PARTS CHASER DANIEL, BY LEAVING A VOICE MESSAGE TO HER ABOUT THE HOSPICE NAME. DR. DOLAN HAS BEEN CONTACTED REGARDING IF THE PATIENT WILL GO TO HOSPICE OR STAY IN THE HOSPITAL. MEANWHILE MORE FAMILY MEMBERS ARE ARRIVING TO THE ROOM TO SEE THEIR GRANDFATHER. PATIENT IS RUNNING HIS NEOSYNEPHRINE AT 220MCG/MIN. WILL CONTINUE TO MONITOR.
[2017-12-23] MEDS ORDERED: MORPHINE I.V. DRIP 100 ML IV PRN (11:30)
--- NOTE | 2017-12-23 12:00 | NUR ---
AWAITING FOR THE MORPHINE DRIP. CURRENTLY THE PATIENT IS ON NEOPSYNEPHRINE AT 260 MCQ/ MIN. WILL START MORPHINE DRIP ONCE ARRIVE FROM THE PHARMACY, MEANWHILE FAMILY MEMBERS ARE GATHERING BY THE BEDSIDE. PATIENT BLOOD PRESSURE IS HOLDING IN THE MID 90S. MOUTH CARE WAS DONE FOR THE PATIENT AND HE WAS REPOSITIONED. WILL CONTINUE TO MONITOR.
--- NOTE | 2017-12-23 12:24 | NUR ---
MORPHINE WOULD NOT SCAN SO MANUAL SCAN DONE WITH A WITNESS.
--- NOTE | 2017-12-23 12:24 | NUR ---
MORPHINE DRIP STARTED AT 2MG/HR. FAMILY AT BEDSIDE. NEOSYNEPHRINE INFUSING AT 280 MCGS. WILL MONITOR PT PRIOR TO STOPPING NEOSYNEPHRINE PER MD ORDER.
--- NOTE | 2017-12-23 13:30 | NUR ---
PATIENT VITAL CONTINUES TO DETERIORATE. PULSE IS GETTING SLOWER AND NO MORE READING REGARDING THE O2 SATURATION. NO READING IN REGARD TO BLOOD PRESSURE. PULSE COMES TO STAND STILL WITH FLAT WAVE AND SOME OTHER TIMES WITH V FIB. FAMILY MEMBERS BY THE BEDSIDE. WILL CONTINUE TO MONITOR
--- NOTE | 2017-12-23 13:54 | NUR ---
PRONOUNCEMENT OF PT A DNR AND NOT ON THE VENTILATOR. FAMILY PRESENT AT BEDSIDE. PT ASYSTOLE ON MONITOR. NO AUDIBLE HEARTBEAT WITH STETHOSCOPE. NO CHEST MOVEMENT OR AUDIBLE BREATH SOUNDS. PUPILS FIXED AND NON REACTIVE. NO RESPONSE TO PAINFUL STIMULUS. PT PRONOUNCED AT 1354 WITH IVORY MERIDA RN.
--- NOTE | 2017-12-23 13:54 | NUR ---
PATIENT HEART STOPPED TOTALLY AND FLAT LINE ON THE MONITOR SHOWED UP, MEANWHILE AUSCULTATING THE HEART REVEALED NO HEART BEATS OR BREATH SOUNDS. FAMILY MEMBERS ARE BY THE BEDSIDE, WILL AWAIT FOR THE CHARGE NURSE TO PRONOUNCE , SINCE I"M NOT YET APROAVED TO DO THAT. WILL PREPARE THE BODY FOR THE MORTUARY.
--- NOTE | 2017-12-23 13:58 | NUR ---
Informed MD's patient dr. lee spoke to jesús dialed [phone] dr. davila spoke to jesús dialed [phone] dr. alamo spoke to jesús dialed [phone] dr. segovia spoke to jesús dialed [phone]
--- NOTE | 2017-12-23 16:45 | NUR ---
MORTUARY HERE TO BINDERY LEADPERSON PT AND TAKE HIM TO MORTUARY. FAMILY AT BEDSIDE PRAYING AND FOLLOWED PT OUT OF THE ICU WITH MORTUARY PERSONNEL.
== END 2017-12-23 13:54 | disposition expired | DRG 871 ==
LOC: SED 15:16 → SMU 19:53 → SIC 21:35
PROVIDERS: ADMIT Internal Medicine Hospice and Palliative Medicine; ATTEND Internal Medicine Hospice and Palliative Medicine
PROC: 02HV33Z Insertion of Infusion Device into Superior Vena Cava, Percutaneous Approach (ICD-10-PCS; principal; 2017-12-14)
PROC: B548ZZA Ultrasonography of Superior Vena Cava, Guidance (ICD-10-PCS; 2017-12-14)
DX: A41.9 Sepsis, unspecified organism (principal); J69.0 Pneumonitis due to inhalation of food and vomit; R65.21 Severe sepsis with septic shock; N17.9 Acute kidney failure, unspecified; A04.72 Enterocolitis due to Clostridium difficile, not specified as recurrent; R64 Cachexia; J44.9 Chronic obstructive pulmonary disease, unspecified; R16.0 Hepatomegaly, not elsewhere classified; N39.0 Urinary tract infection, site not specified; Z68.1 Body mass index [BMI] 19.9 or less, adult; Z66 Do not resuscitate; K56.41 Fecal impaction; E11.9 Type 2 diabetes mellitus without complications; D64.9 Anemia, unspecified; E03.9 Hypothyroidism, unspecified; I10 Essential (primary) hypertension; F03.90 Unspecified dementia, unspecified severity, without behavioral disturbance, psychotic disturbance, mood disturbance, and anxiety; I25.10 Atherosclerotic heart disease of native coronary artery without angina pectoris; R62.7 Adult failure to thrive; K80.20 Calculus of gallbladder without cholecystitis without obstruction; Z51.5 Encounter for palliative care; Z87.440 Personal history of urinary (tract) infections; Z88.6 Allergy status to analgesic agent; Z88.8 Allergy status to other drugs, medicaments and biological substances; Z86.73 Personal history of transient ischemic attack (TIA), and cerebral infarction without residual deficits; Z87.891 Personal history of nicotine dependence
CPT/HCPCS: 36415; 71045; 71250-TC; 74018; 80048; 80053; 81003; 82140-TC; 82378; 82533; 82962; 83605; 83735-TC; 83880; 84100-TC; 84132-TC; 84439; 84443-TC; 84484; 85007; 85025; 85027; 85610-TC; 87040-TC; 87045-TC; 87046; 87081; 87177; 87230-TC; 89055; 93005; 93306; 96365; 96375; 99285; A6209; C1751; J0696; J1720; J1815; J1956; J2270; J2370; J2405; J2543; J3370; J3480; J3490; J7030; J7040; J7050; J7060; P9046